=== PATIENT | male | born 1960 | race Caucasian/White ===

== ENCOUNTER 2021-09-29 11:58 | Outpatient (CLI) | payer BC, SELFPAY ==
--- NOTE | ~2021-09-29 | XR_ITS ---
EXAMINATION: XR chest 2V 09/29/2021 12:12 INDICATION: Chronic cough PROCEDURE: 2 view chest COMPARISON: 06/15/2016 FINDINGS: The lungs are clear. The cardiomediastinal silhouette is within normal limits. There are no pleural effusions. There is no pneumothorax suspected. IMPRESSION: 1: NO ACUTE CARDIOPULMONARY DISEASE. Reviewed, dictated and finalized at location A. ECTOR WATCH ASSEMBLY
== END 2021-09-29 11:59 | disposition home or self-care (01) ==
LOC: ANHIMG 12:01
PROVIDERS: PCP Internal Medicine
DX: R05.3 Chronic cough (principal)
CPT/HCPCS: 71046

== ENCOUNTER 2022-12-17 09:47 | Outpatient (CLI) | payer BC, SELFPAY ==
--- NOTE | 2022-12-21 12:26 | WPDHOLTEREM ---
Holter/Event Monitor Holter/Event Monitor Date of procedure: 12/17/22 Holter/Event Procedure: 48 Hr Holter Monitor Indications: Irregular heart beat Conclusion: 1. 48 hour holter monitor on 12/17/22. 2. Predominant rhythm is sinus rhythm. HR range 58-125 bp; average HR 76 bpm. 3. There are 40 premature supraventricular complexes. There are 2 episodes of atrial tachycardia, fastest at 148 bpm and longest lasting 11 beats. 4. There are 14 premature ventricular complexes. No ventricular tachycardia. 5. No sinoatrial or atrioventricular blocks. No significant pauses greater than 2 seconds. 6. No symptoms available for correlation.
== END 2022-12-17 09:48 | disposition home or self-care (01) ==
PROVIDERS: PCP Internal Medicine; Visit Provider Internal Medicine
DX: I49.9 Cardiac arrhythmia, unspecified (principal); I47.1 Supraventricular tachycardia
CPT/HCPCS: 93225; 93226

== ENCOUNTER 2023-06-14 09:28 | Outpatient (CLI) | payer BC, SELFPAY ==
--- NOTE | ~2023-06-14 | XR_ITS ---
EXAMINATION: XR chest 2V DATE: 06/14/2023 09:41 INDICATION: Weight loss TECHNIQUE: PA and lateral views of the chest are obtained. COMPARISON: 09/29/2021 FINDINGS: The lungs are free of acute opacities. No pleural effusion or pneumothorax. The cardiomedia stinal silhouette is normal. There is moderate thoracic spondylosis. IMPRESSION: 1. No acute cardiopulmonary abnormality. Reviewed, dictated and finalized at location B.
== END 2023-06-14 09:29 | disposition home or self-care (01) ==
PROVIDERS: PCP Internal Medicine; Visit Provider Internal Medicine
DX: R63.4 Abnormal weight loss (principal)
CPT/HCPCS: 71046

== ENCOUNTER 2023-07-11 09:47 | Outpatient (CLI) | payer BC, SELFPAY ==
--- NOTE | ~2023-07-11 | XR_ITS ---
EXAMINATION: XR barium swallow modified DATE: 07/11/2023 10:23 INDICATION: Dysphagia. TECHNIQUE: The patient was given barium-containing material of multiple consistencies to swallow by t he speech pathologist while I performed fluoroscopy. Fluoroscopy exposure time was 0.7 minutes. The n umber of fluoroscopy images saved to the PACS was 1. Dose-area product was 0.414 Gy-cm^2. FINDINGS: The oral stage, pharyngeal stage, and cervical/esophageal stage of the swallow are normal. IMPRESSION: 1. Normal modified barium swallow. 2. Please refer to the speech therapy report for recommendations. Reviewed, dictated and finalized at location A.
--- NOTE | 2023-07-11 13:36 | REHSTMBS ---
Assessment and note entered by Cary Kaplan, PEACE OFFICER Modified Barium Swallow Evaluation Feeding Type Recommended Oral Food Consistency Regular, Level 7 Liquid Consistency Thin (0) ST Clinical Summary MODIFIED BARIUM SWALLOW The patient was seen for an outpatient Modified Barium Swallow study at the request of his physician. He reports that he has had issues in the past with solid food becoming stuck at the bottom of his throat however he also admits to becoming choked on thin liquids. The patient was viewed in the lateral position to the level of C5/C6. Patient was presented with thin liquid contrast medium per spoon and then uncontrolled thin liquid per cup and per straw, pudding mixed with semi-solid contrast medium, and then fruit cocktail and cracker both coated with the semi-solid mixture. Patient elicited quick swallows with no evidence of penetration/ aspiration and adequate laryngeal elevation and base of tongue retraction. Results suggest this patient may remain on a Regular Diet. He was instructed in the use of knife and fork to cut food into smaller pieces, taking smaller bites and sips, and then use of head flexion to assist with closing off the airway to prevent penetration/aspiration. Patient voiced good understanding of results and recommendations. No further direct Speech Therapy is indicated at this time. Thank you for this referral.
== END 2023-07-11 09:48 | disposition home or self-care (01) ==
LOC: ANHIMG 09:48
PROVIDERS: PCP Internal Medicine; Visit Provider Internal Medicine
DX: R13.10 Dysphagia, unspecified (principal)
CPT/HCPCS: 92611

== ENCOUNTER 2023-08-18 09:13 | Outpatient (CLI) | payer BC, SELFPAY ==
--- NOTE | ~2023-08-18 | MR_ITS ---
EXAMINATION: MR brain/brain stem wo/w con DATE: 08/18/2023 10:08 INDICATION: UNQUALIFIED VISUAL LOSS, LEFT EYE TECHNIQUE: Magnetic resonance imaging (MRI) of the brain and brainstem was performed without and with 13 cc MultiHance intravenous contrast. Sequences included sagittal and axial T1-weighted SE, axial d iffusion-weighted FS EPI ASSET, axial T2*-weighted GRE, axial T2-weighted FLAIR Propeller, and axial T2-weighted Propeller. Postcontrast axial and coronal T1-weighted SE was obtained. Apparent diffusion coefficient (ADC) maps were created. COMPARISON: None. FINDINGS: No abnormal restricted diffusion to suggest acute ischemic infarct. No MRI evidence of hemorrhage or extra-axial collection. No suspicious foci of susceptibility to suggest prior intraparenchymal hemorr ina. Scattered foci of white matter hyperintensity, likely representing mild small vessel ischemic d isease. No evidence of advanced or lobar predominant parenchymal volume loss. The basilar cisterns ar e patent. Flow voids are preserved. Linear vascular enhancement in the left parietal lobe, likely dev elopmental venous anomaly (also known as a cerebral venous angioma). Paranasal sinuses are within nor mal limits. Globes and orbital contents are within normal limits. IMPRESSION: Mild chronic white matter changes. Left parietal developmental venous anomaly. No MR findings to suggest optic neuritis. Reviewed, dictated and finalized at location K.
== END 2023-08-18 09:14 | disposition home or self-care (01) ==
PROVIDERS: PCP Internal Medicine; Visit Provider Family Medicine
DX: H54.62 Unqualified visual loss, left eye, normal vision right eye (principal); R90.89 Other abnormal findings on diagnostic imaging of central nervous system
CPT/HCPCS: 70553; A9577

== ENCOUNTER → 2023-08-22 11:07 | Outpatient (CLI) | payer BC, SELFPAY ==
--- NOTE | ~2023-08-22 | US_ITS ---
EXAMINATION: US carotid duplex BI DATE: 08/22/2023 11:41 INDICATION: Transient visual loss of the left TECHNIQUE: Grayscale, color Doppler, and pulsed Doppler images of the cervical carotid arteries were obtained. The degree of vessel stenosis is placed in one of the following categories: normal, <50%, 5 0-69%, >=70% but less than near-occlusion, near-occlusion, or total occlusion. Note that percent sten osis relative to normal distal artery lumen diameter is indirectly measured from velocity measurement s as described by Arun, et al. Radiology 2003; 229:340-346. Notes: Normal: Peak systolic velocity <125 centimeters/sec and no plaque <50%. Peak systolic velocity <125 ( EDV <40; ICA/CCA PSV ratio <2.0; used these factors only a tandem lesions or low cardiac output or co ntralateral disease) 50-69 %: PSV 125-230 (EDV 40-100; ratio 2-4) >= 70% but less than near occlusion: PSV greater than 230 (EDV > 100; ratio> 4.0) Near Occlusion: PSV that is variable; markedly narrowed lumen Occlusion: Absent flow on color/spectral Doppler and no lumen on cloud scale. COMPARISON: None. FINDINGS: RIGHT: The right common carotid artery (CCA) peak systolic velocity (PSV) is 102 cm/s. The right internal ca rotid artery (ICA) PSV is 109 cm/s. The right ICA end-diastolic velocity (EDV) is 35 cm/s. The right ICA/CCA PSV ratio is 1.1. The external carotid artery (ECA) PSV is 119 cm/s. There is antegrade flow in the right vertebral artery. LEFT: The left CCA PSV is 91 cm/s. The left ICA PSV is 137 cm/s. The left ICA EDV is 29 cm/s. The left ICA/ CCA PSV ratio is 1.5. The ECA PSV is 108 cm/s. There is antegrade flow in the left vertebral artery. IMPRESSION: 1. Less than 50% stenosis in the right internal carotid artery by sonographic criteria. 2. 50-69% stenosis in the left internal carotid artery by sonographic criteria. Reviewed, dictated and finalized at location L. IMPRESSION: 1. Less than 50% stenosis in the right internal carotid artery by sonographic c romieria. 2. 50-69% stenosis in the left internal carotid artery by sonographic criteria.
== END ==
PROVIDERS: PCP Internal Medicine; Visit Provider Internal Medicine
DX: I65.23 Occlusion and stenosis of bilateral carotid arteries (principal); H53.122 Transient visual loss, left eye
CPT/HCPCS: 93880

== ENCOUNTER → 2023-09-04 09:46 | Outpatient (CLI) | payer BC, SELFPAY ==
--- NOTE | ~2023-09-04 | CT_ITS ---
EXAMINATION: CTA neck DATE: 09/04/2023 10:23 INDICATION: Left carotid stenosis. TECHNIQUE: Computed tomographic angiography (CTA) of the neck was performed with 100 mL Omnipaque-350 intravenous contrast. Automated exposure control and iterative reconstruction technique were employe d. The dose-length product was 552.72 mGy-cm. Maximum intensity projection 3D-reconstructions were cr eated by the technologist on a separate workstation. COMPARISON: Ultrasound 08/22/2023 FINDINGS: There are no pathologically enlarged lymph nodes. The vertebral arteries are codominant. Th ere is no significant stenosis of the vertebral arteries. There is plaque in the proximal internal ca rotid arteries. There is 0% stenosis of the proximal right internal carotid artery relative to normal distal artery lumen diameter (NASCET criteria). There is 22% stenosis of the proximal left internal carotid artery relative to normal distal artery lumen diameter. There is mild cervical spondylosis. IMPRESSION: 1. 0% stenosis of the proximal right internal carotid artery relative to normal distal artery lumen d iameter (NASCET criteria). 2. 22% stenosis of the proximal left internal carotid artery relative to normal distal artery lumen d iameter. Reviewed, dictated and finalized at location E. TBREAD TRIMMER IMPRESSION: 1. 0% stenosis of the proximal right internal carotid artery relative to normal distal artery lumen diameter (NASCET criteria). 2. 22% stenosis of the proximal left internal carotid artery relative to normal distal artery lumen diameter.
[2023-09-04 10:04] LABS: Estimated Glomerular Filt Rate > 60
== END ==
PROVIDERS: PCP Internal Medicine; Visit Provider Internal Medicine
DX: I65.22 Occlusion and stenosis of left carotid artery (principal)
CPT/HCPCS: 70498; Q9967

== ENCOUNTER 2023-09-17 14:33 | Outpatient (CLI) | payer BC, SELFPAY ==
--- NOTE | 2023-09-17 | ECHO_ITS ---
Patient Info Name: Otis Escoto Age: 62 years : 1960 Gender: Male Ht: 71 in Wt: 156 lbs BSA: 1.88 m2 HR: 74 bpm BP: 151 / 78 mmHg Heart Rhythm: Sinus Rhythm Technical Quality: Good Exam Date: 09/17/2023 2:51 PM Exam Location: Echo Lab Patient Status: Outpatient Admit Date: 09/17/2023 Staff Ordering Physician: Debra Cortez MD Precipitator Supervisor: Chin Sanon RDCS Attending Provider: Debra Cortez MD Referring Physician: Dana BRAGG; Exam Type: CA echo doppler color flow Study Info Indications - transient visual loss of lyft eye Complete two-dimensional, color flow and Doppler transthoracic echocardiogram is performed. Summary 1. Complete two-dimensional, color flow and Doppler transthoracic echocardiogram is performed. 2. Left ventricular chamber dimension is normal. 3. Left ventricular systolic function is normal, estimated at 60-65%. 4. There is mild concentric increased left ventricular wall thickness. 5. The left ventricular diastolic function is normal. 6. E/e' 6 is not elevated. 7. There is mild aortic valve sclerosis. 8. There is trace tricuspid valve regurgitation. 9. No pulmonary hypertension, estimated pulmonary arterial systolic pressure is 23 mmHg. 10. There is trace pulmonic regurgitation. Left Ventricle E/e' 6 is not elevated. Left ventricular chamber dimension is normal. Left ventricular systolic function is normal, estimated at 60-65%. There is mild concentric increased left ventricular wall thickness. The left ventricular diastolic function is normal. Right Ventricle Right ventricular systolic function is normal and with normal TAPSE 3.1 cm. Right ventricular chamber dimension is normal. Left Atria Left atrial chamber dimension is normal. Right Atria Right atrial chamber dimension is normal. Aortic Valve The aortic valve is trileaflet. There is mild aortic valve sclerosis. There is no aortic valve stenosis. There is no aortic valve regurgitation. Pulmonic Valve There is trace pulmonic regurgitation. Mitral Valve There is no mitral valve stenosis. There is no mitral valve regurgitation. Tricuspid Valve There is trace tricuspid valve regurgitation. No pulmonary hypertension, estimated pulmonary arterial systolic pressure is 23 mmHg. Pericardium/Pleural There is no pericardial effusion. Inferior Vena Cava Normal inferior vena cava with >50% collapse upon inspiration consistent with normal right atrial pressure, 5 mmHg. Aorta The aortic root size at the sinus of Valsalva is normal. Left Ventricular Outflow Tract Name Value Normal LVOT 2D LVOT Diameter 2.0 cm LVOT Doppler LVOT Peak Gradient 2 mmHg LVOT Mean Gradient 2 mmHg LVOT VTI 23 cm LVOT VTI/AV VTI Ratio 0.9 LVOT Stroke Volume 74 ml LVOT CO 4.3 l/min LVOT CI 2.3 l/min/m2 Pulmonic Valve Name Value Normal
== END 2023-09-17 14:34 | disposition home or self-care (01) ==
LOC: ANHCARD 14:34
PROVIDERS: PCP Internal Medicine; Visit Provider Internal Medicine
DX: H53.122 Transient visual loss, left eye (principal)
CPT/HCPCS: 93306

== ENCOUNTER 2024-07-17 10:54 | Outpatient (CLI) | payer MEDICARE, SELFPAY ==
--- NOTE | ~2024-07-17 | XR_ITS ---
Clinical Indication: Weight loss PA and lateral views of the chest: Comparison: 06/14/2023 Findings: The lungs are clear, without evidence of focal consolidation or pleural effusion. Cardiome diastinal silhouette is within normal limits. Bones and soft tissues are unremarkable. Impression: Normal chest. Reviewed, dictated and finalized at location . Impression: Normal chest.
== END 2024-07-17 10:55 | disposition home or self-care (01) ==
PROVIDERS: PCP Internal Medicine; Visit Provider Internal Medicine
DX: R63.4 Abnormal weight loss (principal)
CPT/HCPCS: 71046

== ENCOUNTER 2025-02-11 12:50 | Emergency (ER) | payer MEDICARE, SELFPAY ==
--- NOTE | ~2025-02-11 | XR_ITS ---
CHEST RADIOGRAPH, PA AND LATERAL CLINICAL HISTORY: SOB COUGH FEVER X 1 WK . COMPARISON: 07/17/2024 TECHNIQUE: PA and lateral views of the chest. FINDINGS The cardiomediastinal silhouette is unremarkable. The lungs are clear. Visualized osseous structures and soft tissues are unremarkable. IMPRESSION: No focal infiltrate or effusion. Reviewed, dictated and finalized at location A.
[2025-02-11 12:54] VITALS: BP 125/69; PULSE 103; RESP 20; TEMP 36.6; O2SAT 98
--- OUTSIDE RECORDS SUMMARY | 2025-02-11 13:05 | XMS_ITS | Encounter Summary ---
Author Organization [facility] Address [address] [place] [address] Care Team Providers Care Quality Assurance Group Leader Name Role Phone Ward Sher MD Primary Care Provider [phone] Encounter Details Date Type Department Care Team (Late st Contact Info) Description 03/25/2024 Lab Requisition [facility] - DermPath Lab [address] [facility] [place] [id number] Millie Hair MD [address] [facility] [address] [place] [address] Social History Tobacco Use Types Packs/Day Years Used Date Smoking Tobacco: Never Smokeless Tobacco: Never Sex and Gender Information Value Date Recorded Sex Assigned at Not on file 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 Gender Identity Not on file Sexual Orientation Not on file documented as of this encounter Plan of Treatment Not on file documented as of this encounter Procedures Procedure Name Priority Date/Time Associated Diagnosis Comments DERMATOPATHOLOGY Routine 03/25/2024 9:08 AM CDT documented in this encounter Results * DERMATOPATHOLOGY (03/25/2024 9:08 AM CDT) Case Report Dermatopathology Report Case: [id number] Authorizing Provider: Millie Hair MD Collected: 03/25/2024 09:08 AM Ordering Location: [facility] - Received: 03/26/2024 06:22 AM DermPath Lab Pathologist: Rosita Adams MD Specimens: A) - Skin, glabella B) - Skin, right thigh 3:56 PM [facility] Final Diagnosis Specimen A. 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 SKIN, right thigh: LENTIGINOUS MELANOCYTIC NEVUS, JUNCTIONAL TYPE, IRRITATED AND INFLAMED (D22.71) 3:56 PM [facility]ERMATOPATHOLOGY [facility]OR[facility] Clinical History A: DGH, Reynold Derm B: Nevus r/o MM 3:56 PM [facility]MAT[facility] Gross Description Specimen A: Received is one formalin filled container labeled with the patient's name and designated glabella. The specimen consists of a shave biopsy measuring 4x3x1 mm. Jar 0. Specimen B: Received is one formalin filled container labeled with the patient's name and designated right thigh. The specimen consists of a shave biopsy measuring 6x6x1 mm. Jar 0. 3:56 PM [facility] Microscopic Description Specimen A. SKIN, glabella: Small follicles with abundant sebaceous glands with variable maturity radiate from a large central follicle which is dilated. This central hair follicle contains keratinous material. Additional deeper sections were obtained and reviewed. Specimen B. SKIN, right thigh: This is a junctional nevus. There is melanin pigment in the stratum corneum. There is a lentiginous proliferation of melanocytes between nests of cells along the dermal-epidermal junction. 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 There is a lymphohistiocytic infiltrate within the dermis. 3:56 PM T DERMATOPATHOLOGY LABORATORY Disclaimer An external and internal positive and negative controls are appropriate for the histochemical, immunohistochemical and immunofluorescence stain(s) in this case (if any), except where stated explicitly. The performance characteristics of the stain(s) cited in this report were developed and its performance characteristic determined by the Dermatopathology Laboratory at [facility], directed by Dr. Beatriz Adams. These tests need not be, and therefore are not, approved by the [place] Food and Drug Administration. The tests are used for clinical purposes. Billing Codes Specimen Charges Stain Charges 42312 41619 1 1 4 3:56 PM CDT DERMATOPATHOLOGY LABORATORY Embedded Images 4 3:56 PM CDT DERMATOPATHOLOGY LABORATORY Pathology/Cytology TISSUE SPECIMEN FROM SKIN / Unknown 03/25/2024 9:08 AM CDT 03/26/2024 6:22 AM CDT Miscellaneous samples (specimen) TISSUE SPECIMEN FROM SKIN / Unknown 03/25/2024 9:08 AM CDT 03/26/2024 6:22 AM CDT us Millie Hair MD LAB - PATHOLOGY/CYTOLOGY ORD ERABLES Final Result DERMATOPATHOLOGY LABORATORY [facility] - Department of Dermatology [facility] Specialized Medicine [address] [place] [address], [address] [phone] documented in this encounter Visit Diagnoses Not on filedocumented in this encounter Care Teams Quality Assurance Group Leader Relationship Specialty Start Date End Date Ward Sher MD [address] [place] [address] PCP - General Family Medicine 11/29/17 documented as of this encounter
--- OUTSIDE RECORDS SUMMARY | 2025-02-11 13:05 | XMS_ITS | Clinical Summary ---
Author Organization [facility] Address [address] [place] [address] Phone Care Team Providers Care Php Engineer Name Role Phone Debra Cortez MD Primary Care Provider [phone] Allergies No known active allergies Medications levothyroxine (SYNTHROID) 50 mcg tablet Take 1 tablet (50 mcg total) by mouth daily 3 Active amLODIPine (NORVASC) 5 mg tablet 3 Active fluticasone-ume clidin-vilanter (Trelegy Ellipta) 200-62.5-25 mcg inhaler USE 1 INHALATION ORALLY ONCE DAILY Active montelukast (SINGULAIR) 10 mg tablet 1 tab(s) 8 Active cholecalciferol (VITAMIN D-3) 2000 unit capsule 1 capsule (2,000 Units total) Active Breo Ellipta 100-25 mcg/dose diskus inhaler Inhale 1 puff daily Active rosuvastatin (CRESTOR) 40 mg tablet Take 1 tablet (40 mg total) by mouth daily Active aspirin 81 mg enteric coated tablet Take 1 tablet (81 mg total) by mouth daily Active Active Problems No known active problems Medical History Medical History Date Comments Hypertension Hyperlipidemia Thyroid disease Sleep apnea Asthma Family History Medical History Relation Name Comments Diabetes Brother Esophageal cancer Father Stroke Father Diabetes Mother Relation Name Status Comments Brother Father Mother Social History Tobacco Use Types Packs/Day Years Used Date Smoking Tobacco: Never Smokeless Tobacco: Never Tobacco Cessation:Counseling Given: Not Answered Personal Safety Answer Date Recorded Getting School Help Needed Not on file 11/04 Sex and Gender Information Value Date Recorded Sex Assigned at Not on file 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 Gender Identity Not on file Sexual Orientation Not on file Obstetrics History Last Filed Vital Signs Vital Sign Reading Time Taken Comments Blood Pressure 102/64 05/27/2024 12:58 PM CDT Pulse 67 05/27/2024 12:58 PM CDT Temperature - - Respiratory Rate - - Oxygen Saturation 99% 05/27/2024 12:58 PM CDT Inhaled Oxygen Concentration - - Weight 70.5 kg (155 lb 6.4 oz) 05/27/2024 12:58 PM CDT Height 180.3 cm (5' 11 ) 05/27/2024 12:58 PM CDT Body Mass Index 21.67 05/27/2024 12:58 PM CDT Plan of Treatment Health Maintenance Due Date Last Done Comments Colon Cancer Screening-Colonoscopy 1960 Depression Screening 1960 Fall Risk Assessment 1960 Hepatitis C Screening 1960 Prostate Cancer Screening-PSA 1960 Hepatitis B Screening 1976 Zoster Vaccine (1 of 2) 2008 Pneumococcal vaccine 65+ (2 of 2 - PCV) 07/14/2020 07/14/2019 Well Visit 65+ 12/28/2023 Covid-19 Vaccine (2023-2 5 season) 2024 08/05/2023, 10/16/2022, 06/01/2022, Additional history exists Influenza Vaccine (#1) 2024 , 07/27/2022, 07/19/2022, Additional history exists DTaP/Tdap/Td Vaccine (2 - Td or Tdap) 09/17/2024 09/17/[address] [place] [place] [address] [facility] Member Subscriber Plan / Payer (Ef fective 2023-Present) Name:Otis Escoto Relation to Subscriber:Self Name:Otis Escoto Payer ID:[id number] (NAIC) Type:[facility] Address: [address] MEDICARE [facility] Care Teams Php Engineer Relationship Specialty Start Date End Date Debra Cortez MD [address] [employer] [employer] [place] [address] PCP - General Internal Medicine 12/26/22
--- OUTSIDE RECORDS SUMMARY | 2025-02-11 13:05 | XMS_ITS | Clinical Summary ---
Author Organization [facility] Address [address] [place] [phone] Phone Care Team Providers Care Speed Runner Name Role Phone Ward Sher MD Primary Care Provider [phone] Allergies No known active allergies Medications No known medications Social History Tobacco Use Types Packs/Day Years Used Date Smoking Tobacco: Never Alcohol Use Standard Drinks/Week Comments Yes 0 (1 standard drink = 0.6 oz pur e alcohol) social Sex and Gender Information Value Date Recorded Sex Assigned at Not on file Legal Sex Male 11:10 AM CDT Gender Identity Not on file Sexual Orientation Not on file Last Filed Vital Signs Vital Sign Reading Time Taken Comments Blood Pressure 145/80 05/02/2015 2:46 PM CDT Pulse 78 05/02/2015 1:30 PM CDT Temperature 36.8 C (98.3 F) 05/02/2015 2:46 PM CDT Respiratory Rate 16 05/02/2015 2:46 PM CDT Oxygen Saturation 94% 05/02/2015 2:46 PM CDT Inhaled Oxygen Concentration - - Weight 93 kg (205 lb) 05/02/2015 11:19 AM CDT Height 180.3 cm (5' 11 ) 05/02/2015 11:19 AM CDT Body Mass Index 28.59 05/02/2015 11:19 AM CDT Plan of Treatment Health Maintenance Due Date Last Done Comments DTAP/TDAP/TD VACCINES (1 - Tdap) 1977 COLORECTAL SCREENING 12/28/2003 Colorectal Cancer Screening 12/28/2003 FIT-DNA Q 3 years 12/28/2003 FIT/FOBT Q 1 year 12/28/2003 Flex Sig/CT Colonography Q 5 years 12/28/2003 PNEUMOCOCCAL VACCINE 50+ YEARS (1 of 1 - PCV) 12/28/19 09 ZOSTER VACCINE (1 of 2) 2008 INFLUENZA VACCINE (#1) 2024 RSV VACCINE (60+ or ) (1 - 1-dose 75+ series) 2033 Insurance [facility] [employer] PPO Care Teams Speed Runner Relationship Specialty Start Date End Date Ward Sher MD [facility] [place] [address] PCP - General Family Practice 05/02/15
--- OUTSIDE RECORDS SUMMARY | 2025-02-11 13:05 | XMS_ITS | Clinical Summary ---
Author Organization [facility] [employer] Address [address] [place] [address] Care Team Providers Care Crosscutter Rolled Glass Name Role Phone Ward Sher MD Primary Care Provider [phone] Source Comments [facility] [employer],non-owned Affiliates and Associated Physician Practices is amultiple site organization consisting of ambulatory clinics and hospital sitesin [place], [place] and [place]. This disclosure is being madepursuant to the Care Everywhere program and may not contain all information available regarding this patient. Last updated 18.[facility] [employer] Allergies No known active allergies Medications * Be aware that medications may not be up to date on this document. Alwaysverify current medications with the patient. Fluticasone Furoate-Vilanter ol (BREO ELLIPTA IN) Active amLODIPine (NORVASC) 5 MG tablet Take 5 mg by mouth once daily 0 Active atorvastatin (LIPITOR) 40 MG tablet 1 TABLET ORALLY DAILY. REPLACES PRAVASTATIN. 1 Active rosuvastatin (CRESTOR) 10 MG tablet 1 Active albuterol HFA (PROVENTIL;EMEKA LA ENNA;PROAIR) 108 (90 Base) MCG/ACT inhalerIndicatio ns:Acute bronchitis, unspecified organism Inhale 2 (two) puffs by mouth every 6 hours as needed for Wheezing or Cough 1 g 1 Active methylPREDNISolo ne (MEDROL DOSEPAK) 4 MG tablet Take by mouth as directed Take as directed by mouth per package instructions. 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 Gender Identity Not on file Sexual Orientation Not on file Last Filed Vital Signs Vital Sign Reading Time Taken Comments Blood Pressure 124/70 09/09/2021 10:50 AM METAL FLOW COORDINATOR Pulse 91 09/09/2021 10:35 AM METAL FLOW COORDINATOR Temperature 37.1 C (98.7 F) 08/29/2021 11:02 AM CDT Respiratory Rate 18 08/29/2021 11:02 AM CDT Oxygen Saturation 98% 09/09/2021 10:35 AM METAL FLOW COORDINATOR Inhaled Oxygen Concentration - - Weight 84.4 kg (186 lb) 09/09/2021 10:35 AM METAL FLOW COORDINATOR Height 180.3 cm (5' 11 ) 09/09/2021 10:35 AM METAL FLOW COORDINATOR Body Mass Index 25.94 09/09/2021 10:35 AM METAL FLOW COORDINATOR Plan of Treatment Health Maintenance Due Date Last Done Comments COLOGUARD (AGES 45-75) - COLON CA SCREENING 1958 COLON MONITORING 1958 COLONOSCOPY - COLON CA SCREENING 1958 CT COLONOGRAPHY - COLON CA SCREENING 1958 Colorectal Cancer Screening 1958 FIT - COLON CA SCREENING 1958 FLEX SIG - COLON CA SCREENING 1958 MEDICARE AWV 12 MONTHS 1958 HEPATITIS C SCREENING 12/22/1976 DTAP/TDAP/TD VACCINES (1 - Tdap) 1977 PNEUMOCOCCAL VACCINE 50+ (1 of 1 - PCV) 2008 ZOSTER VACCINE (1 of 2) 2008 SCREENING FOR DIABETES 06/26/2021 COVID-19 VACCINE (6 - season) 2024 10/16/2022, 06/01/2022, 09/13/2021, Additional history exists DEPRESSION SCREENING 10/28/2024 INFLUENZA VACCINE (Season Ended) 2025 07/19/2022, 07/28/2021, 07/07/2020, Additional history exists Respiratory Syncytial Virus (RSV) Vaccine Pt: or over 60 yrs (1 - 1-dose 75+ series) 2033 HEPATITIS B VACCINE Aged Out No longe r eligible based on patient's age to complete this topic HIB VACCINE Aged Out No longer eligi ble based on patient's age to complete this topic HPV VACCINE Aged Out No longer eligi ble based on patient's age to complete this topic MENINGOCOCCAL (Group B) VACCINE SHARED DECISION-MAKING Aged Out No longer eligible based on patient's age to complete this topic MENINGOCOCCAL GROUPS A/C/Y/W VACCINE Aged Out No longer eligible based on patient's age to complete this [place] [place] [address] MEDICARE [facility] Care Teams Crosscutter Rolled Glass Relationship Specialty Start Date End Date Ward Sher MD [address] [place] [id number] PCP - General Family Medicine 11/29/17
--- OUTSIDE RECORDS SUMMARY | 2025-02-11 13:05 | XMS_ITS | Referral Summary ---
Author Organization [facility] Address [address] [place] [address] Phone Care Team Providers Care Clinic Clerk Name Role Phone Debra Cortez MD Primary Care Provider [phone] Allergies No known active allergies Medications levothyroxine [...] Active Active Problems No known active problems Social History Tobacco Use Types Packs/Day Years Used Date Smoking Tobacco: Never Smokeless Tobacco: Never Tobacco Cessation:Counseling Given: Not Answered Personal Safety Answer Date Recorded Getting School Help Needed Not on file 11/04 Sex and Gender Information Value Date Recorded Sex Assigned at Not on file 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
--- OUTSIDE RECORDS SUMMARY | 2025-02-11 13:05 | XMS_ITS ---
Author Organization [facility] Address [address] [place] [address] Care Team Providers Care Supervising Airplane Pilot Name Role Phone Maame Skinner Primary Care Provider Jaskaran Wall Unavailable [phone] Clarisa Frances Unavailable [phone] Allergies No Known Allergies Results Component Value Reference Range Notes Spirometry Reviewed date:12/31/2024 09:18:43 AM Interpretation:Normal Performing Lab: Notes/Report: Normal SpiroPreBronchodilator_FVC 4.07 SpiroPostBronchodilator_FEF25_75 0 SpiroPreBronchodilator_FEF25_75 4.07 SpiroPreBronchodilator_FEV1 3.4 SpiroPrecentPredictionPost_FEF25_75 0 SpiroPrecentPredictionPost_FEV1 0 SpiroPrecentPredictionPost_FEV1_OVER_FVC 0 SpiroPrecentPredictionPost_FVC 0 SpiroPrecentPredictionPre_FEF25_75 124.5 SpiroPrecentPredictionPre_FEV1 94.7 SpiroPrecentPredictionPre_FEV1_OVER_FVC 108.1 SpiroPrecentPredictionPre_FVC 87.7 SpiroPredicted_FEF25_75 3.27 SpiroPreBronchodilator_FEV1_OVER_FVC 83.5 SpiroPreBronchodilator_PEF 7.86 SpiroPostBronchodilator_FVC 0 SpiroPostBronchodilator_FEV1 0 SpiroPostBronchodilator_FEV1_OVER_FVC 0 SpiroPostBronchodilator_PEF 0 SpiroPredicted_FVC 4.64 SpiroPredicted_FEV1 3.59 SpiroPredicted_FEV1_OVER_FVC 77.26 SpiroPredicted_PEF 8.47 REASON FOR VISIT Cough f/u, stepped down from Trelegy 200 to Breo last visit. ACT=22. No recent antibotics or steroids. Dealing with a cold since last week but cough improving, ARC f/u, Stopped shots in 03/2024. Minimal drainage noted off treatment., Previously treated for H pylori in 2022. Food was getting stuck - doing better since treatment., No interval vision changes - previously with temporary lost vision inL eye - s/p US of carotid - normal CT with Neurology. [place] he has early signs of Parkisons, UTD on Flu shot and Prevna Medications Medication SIG (Take, Route, Frequency, Duration) Notes Start Date End Date Status Trelegy Ellipta 100/62.5/25 MCG 1 INHALATION PO QDAY for 30 DAY(S) *Please review and pick correct strength-formula tion from Stageit options. If intended option is not shown, discontinue and re-order from Quick Search* Not-Taking Auvi-Q 0.3 MG/0.3ML 0.3 mg intramuscularly once for 1 days Not-Taking Montelukast Sodium 10 MG 1 tab(s) orally 30 mins prior to allergy shots for 30 day(s) Not-Taking Trelegy Ellipta 200 MCG-62.5 MCG-25 MCG/INH USE 1 INHALATION ORALLY ONCE DAILY for 90 *Please review and pick correct strength-formula tion from Stageit options. If intended option is not shown, discontinue and re-order from Quick Search* Not-Taking Montelukast Sodium 10 MG 1 tab(s) orally once a day for 90 days Not-Taking CETIRIZINE HYDROCHLORIDE 10 mg 1 tab(s) orally once a day for 30 days Active NASAL WASHES N/A as directed intranasally as needed for 30 Active Auvi-Q 0.3 MG/0.3ML 0.3 mg intramuscularly once Not-Taking Mucinex 600 MG 1 tab(s) orally every 12 hours Not-Taking ALBUTEROL (EQV-PROVENTIL HFA) 90 MCG/INH INHALE 2 PUFFS EVERY 4 TO 6 HOURS, NEEDED AND PER THE ASTHMA ACTION PLAN *Please review for potential replacement for e-prescription and drug interaction check* Active VITAMIN D3 5000 intl units 1 cap(s) orally once a day for 30 day(s) Active Rosuvastatin Calcium 40 MG 1 TAB(S) ORALLY ONCE A DAY *Please review and pick correct strength-formula tion from Stageit options. If intended option is not shown, discontinue and re-order from Quick Search* 08/02/2022 Active AMLODIPINE 5 mg 1 tab(s) orally once a day Active MUCINEX 600 mg 1 tab(s) orally every 12 hours Active Breo Ellipta 100-25 MCG/ACT USE 1 INHALATION BY MOUTH ONCE A DAY for 90 Active Aspirin 81 MG 1 tab(s) orally once a day Active Cetirizine HCl 10 MG 1 tab(s) orally once a day for 30 days Active amLODIPine Besylate 5 MG 1 tab(s) orally once a day Active Breo Ellipta 100-25 MCG/ACT 1 puff Inhalation Once a day for 90 days 12/31/2024 Active Levothyroxine Sodium 25 MCG 1 tab(s) orally once a day for 30 day(s) Active SIT (TRADITIONAL) variable per schedule SC per schedule Active Vitamin D3 125 MCG (5000 UT) 1 cap(s) orally once a day for 30 day(s) Active Social History Tobacco Use: Social History Observation Description Date Details (start date - stop date) Never Smoker NA - NA Tobacco Control (Standard) Question Answer Notes Tobacco use: Nonsmoker AUDIT-C (Standard) Question Answer Notes Did you have a drink containing alcohol in the p ast year? No Points 0 Interpretation Negative Vital Signs Blood pressure systolic 143 mm Hg 01/01/20 25 Blood pressure diastolic 72 mm Hg 025 Respiratory Rate 17 /min 12/31/2024 Height 70.25 in 12/31/2024 Weight 164.2 lbs 12/31/2024 BMI 23.39 kg/m2 12/31/2024 Oximetry 100 % 12/31/2024 Encounters Encounter Location Date Provider Diagnosis [facility] [address] [place] [address] 12/31/2024 Clarisa Young Moderate persistent asthma, uncomplicated J45.40 ; Allergic rhinitis due to pollen J30.1 ; Allergic rhinitis due to animal (cat) (dog) hair and dander J30.81 ; Other allergic rhinitis J30.89 ; Other specified disorders of nose and nasal sinuses J34.89 and Vitamin D deficiency, unspecified E55.9 Assessments Encounter Date Diagnosis (ICD Code) Assessment Notes Treatment Notes Treatment Clinical Notes Section Notes 12/31/2024 Moderate persistent asthma, uncomplicated (ICD-10 - J45.40) Jeff returns today doing well. He did recently have a cold but lungs are clear. Continue to use MARKO and add on Mucinex PRN -Spirometry today is normal on Breo, previously stepped down from Trelegy last year - IgE=87 -Last course of steroids and abx on 07/2023 - will watch symptoms in Fall -Recommend Flu RSV COVID vaccines. Also due for Prevnar later this year -Rinse out mouth after use and continue MARKO per AAP Follow-up in 3-6 months 12/31/2024 Allergic rhinitis due to pollen (ICD-10 - J30.1) Jeff clearly suffers from atopic disease based upon history and our previous skin testing (oak tree, weeds, cockroach, dog, dust mites, molds). -He continue avoidance measures and medications as above. -He opted to hold shots in March and has been doing well - closely monitor and if symptoms regress will resume dosing 12/31/2024 Allergic rhinitis due to animal (cat) (dog) hair and dander (ICD-10 - J30.81) Continue allergen avoidance, meds and continue SCIT as an adjunctive treatment to current regimen 12/31/2024 Other allergic rhinitis (ICD-10 - J30.89) Continue allergen avoidance, meds and continue SCIT as an adjunctive treatment to current regimen 12/31/2024 Other specified disorders of nose and nasal sinuses (ICD-10 - J34.89) Otis has a visible perforation in his anterior nasal septum, diagnosed in March 2018 and confirmed by ENT. Josesito present on today's PE. -appears to be slightly larger, recommend f/u with Dr. Rodriguez. Presumed induced by chronic nasal pillow CPAP use, now using full face mask. Contune to avoid nasal sprays 12/31/2024 Vitamin D deficiency, unspecified (ICD-10 - E55.9) Continue 5000 IU QD 12/31/2024 Other Plan Of Treatment Medication Medication Name Sig Start Date Stop Date Notes CETIRIZINE HYDROCHLORIDE 10 mg 1 tab(s) orally once a day for 30 days NASAL WASHES N/A as directed intranasally as needed for 30 ALBUTEROL (EQV-PROVENTIL HFA) 90 MCG/INH INHALE 2 PUFFS EVERY 4 TO 6 HOURS, NEEDED AND PER THE ASTHMA ACTION PLAN *Please review for potential replacement for e-prescription and drug interaction check* VITAMIN D3 5000 intl units 1 cap(s) orally once a day for 30 day(s) AMLODIPINE 5 mg 1 tab(s) orally once a day MUCINEX 600 mg 1 tab(s) orally ever y 12 hours Breo Ellipta 100-25 MCG/ACT 1 puff Inhalation Once a day for 90 days 12/31/2024 Treatment Notes Assessment Notes Moderate persistent asthma, uncomplicate d Jeff returns today doing well. He did recently have a cold but lungs are clear. Continue to use MARKO and add on Mucinex PRN -Spirometry today is normal on Breo, [facility] - IgE=87 -Last course of steroids and abx on 07/2023 - will watch symptoms in Fall -Recommend Flu RSV COVID vaccines. Also due for Prevnar later this year -Rinse out mouth after use and continue MARKO per AAP Follow-up in 3-6 months Allergic rhinitis due to pollen Don clearly suffers from atopic disease based upon history and our previous skin testing (oak tree, weeds, cockroach, dog, dust mites, molds). -He continue avoidance measures and medications as above. -He opted to hold shots in March and has been doing well - closely monitor and if symptoms regress will resume dosing Allergic rhinitis due to ani mal (cat) (dog) hair and dander Continue allergen avoidance, meds and continue SCIT as an adjunctive treatment to current regimen Other allergic rhinitis Continue allergen avoidance, meds and continue SCIT as an adjunctive treatment to current regimen Other specified disorders of nose and nasal sinuses Otis has a visible perforation in his anterior nasal septum, diagnosed in March 2018 and confirmed by ENT. Josesito present on today's PE. -appears to be slightly larger, recommend f/u with Dr. Rodriguez. Presumed induced by chronic nasal pillow CPAP use, now using full face mask. Contune to avoid nasal sprays Vitamin D deficiency, unspecified Contin ue 5000 IU QD Next Appt Details Follow Up: 3-6 Months, Reaso n: Evaluation and Management Provider Name:Clarisa Frances , 07/15/2025 09:00:00 AM, [address] [facility], [address], [place], [address], Progress Notes * Otis ESCOTO JDOB: [birth year] (64 yo M)Acc No.[id number]:12/31/2024 Asthma F/U Patient: Otis MUNOZ Provider: Titi Frances PA-C :1960 A ge:64 Y S ex:Male Date:12/31/2024 Address:[facility] [address], [facility] Pcp:Maame Skinner Subjective: * Chief Complaints: * C ough f/u, stepped down from Trelegy 200 to Breo last visit. ACT=22. No recent antibotics or steroids. Dealing with a cold since last week but cough improvingARC f/u, Stopped shots in 03/2024. Minimal drainage noted off treatment.Previously treated for H pylori in 2022. Food was getting stuck - doing better since treatment.No interval vision changes - previously with temporary lost vision in L eye - s/p US of carotid - normal CT with Neurology. [place] he has early signs of ParkisonsUTD on Flu shot and Prevna * HPI: A sthma follow-up: Asthma Survey - Classification A sthma severity classification M oderate Persistent * Introduction: I had the pleasure of seeing Desiree Escoto (Don), a 64-year-old male with allergic rhinitis, chronic cough with asthma component, ELKIN on CPAP and GERD who returns today for interval evaluation and management and SCIT. The last few months he has been doing well. He is getting over a cold from last week, mild cough and drainage. Using MARKO with benefit. No other symptoms. From an allergy standpoint he has no compliants. He opted to hold shots in March 2024. Minimal drainage noted but feels well. P reviously o n Trelegy 200, now back on [facility]. He was stepped up from [facility] after having having bronchitis on 07/2023 after returning from [place], did not seek care while in [place]. Received prednisone and Zpack x7 days Last prednisone use was prior to recent illness was 02/2018 for cough. He continued to have lingering asthma syptoms. Since that time he has been doing well. P reviously had PNA in 2019. Treated outpatient. He is on PPI for GERD. He has no allergy complaints today, on daily cetirizine and SCIT. Remains on monthly maintenance since 12/2018. He tolerates SCIT with Zyrtec/Singulair premedication. Tried to reduce Zyrtec over Fall/Winter but resumed in Aug due to increased drainage.He refrains from nasal sprays due to nasal septum perforation. He does have a history of frequent pulmonary infections, and PIDD workup done in 2018 and notable for poor S. pneumo protection and Vitamin D deficiency. Now s/p Pneumovax with now protective titers, and s/p Vitamin D suzette doses with normal Vitamin D. He is on 5k IU/day. Today, he reports no fevers, chills, night sweats or other constitutional symptoms. * ROS: A LLERGY: runny nose Y es. s inus congestion Y es. S PECIAL SENSES: loss of smell Y es. C ONSTITUTIONAL: fatigue Y es. E NT: Positive n one. R ESPIRATORY: shortness of breath Y es. c hest congestion Y es.?cough Y es. O PHTHALMOLOGY: Positive for n one. E NDOCRINOLOGY: Positive for n one. C ARDIOLOGY: shortness of breath Y es. G ASTROENTEROLOGY: hemorrhoids Y es. U ROLOGY: Positive for n one. D ERMATOLOGY: Positive for n one. N EUROLOGY: Positive for n one. H EMATOLOGY/LYMPH: Positive for n one. M USCULOSKELETAL: Positive for n one. P SYCHOLOGY: Positive for n one. M SUPA REPRODUCTIVE: Positive for n one. A ll other review of systems per the HPI and history, otherwise negative. Reviewed. * Medical History: * Surgical History: N o Surgical History documented. * Hospitalization/Major Diagno stic Procedure: N o Hospitalization History. * Family History: F ather: , diagnosed with Cancer. M other: alive, diagnosed with Diabetes, Hypertension. S iblings: alive, diagnosed with Diabetes. C hildren: alive, diagnosed with Atopic asthma w/o mention of status asthmaticus or acute exacerbation. 3 brother(s) . 2 son(s) . . brother has history of stroke mom stroke There is no other family history of cancer, CF, diabetes, emphysema or heart disease. * Social History: M arital Status What is your marital status? m arried A lcohol Screening Do you ever drink alcoholic beverages? Y es Number of drinks per occasion: 1 Frequency? E very 6 months S moking Additional Findings: Tobacco Non-User C urrent non-smoker Are you a : n ever smoker R ecreational drug use Have you ever used recreational drugs? N o D etails on consumption of certain products? Do you regularly consume products with aspartame; Equal or NutraSweet? N o Do you regularly consume products with artificial coloring??Yes Have you ever noticed worsening of your rash with these food items? N o A re any of the following personal care products containing fragrance, dye or preservatives used regularly? Shampoo: Y es Conditioner: N o Soap: Y es Laundry Detergent: Y es Fabric Softener: Y es Deodorant: Y es Perfume, cologne, after shave: N o Air freshners or other scented products: N o Hair coloring dyes or rinses: N o Other: N o O ccupation Are you currenly employed? 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 number of years?35 Do you believe that your current or previous occupation has any bearing on your illness? N o How much work have you missed due to breathing difficulty within the past year? 1 or 2 days Do you have any pending or planned legal action against your current or former employer which pertains to your medical illness? N o Do you anticipate that your evaluation will be used in any legal action against your current employer or former employer? 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 N o Are you currently a student? N o E nvironmental History Living environment: p rivate home Where is the home located? [place] Age of home: 3 5 How long have you lived there? 5 years or more How many people live in the home? 2 H ome description Basement: Y es Any water damage in basement? N o Smokers in the home? N o Smokers outside the home? N o Air Conditioning? Y es Central Air? Y es Forced air heating? Y es Gas or electric? g as Fireplace? Y es Used how often? o ther Wood burning stove? N o Do you vacuum the home? Y es Air purification systems? N o Pillow and mattress dust-proof encasings? N o Do you use a humidifier? N o Do you own any pets? Y es What kind(s)? (click all that apply) c ats Where do your pets sleep? o ther room in home Fabric softeners used? Y es Plants in the home? N o Is there carpeting in your bedroom? Y es Age of carpet? 6 Do you have [id number] carpeting? Y es What is the age of your carpeting? 6 What is the age of your mattress (years)? 5 What material(s) are used to manufacture your bedding and pillow? s ynthetic What is the age of your pillow (years)? 5 What material are your bedding items made of? s ynthetic Do you sleep with quilts or blankets or a duvet? Y es What material? n atural fiber (e.g. cotton) How many cats? 2 T obacco Control (Standard) Tobacco use: N onsmoker A CLARE-C (Standard) Did you have a drink containing alcohol in the past year? N o Points 0 Interpretation N egative * Medications: T akingSIT (TRADITIONAL) variable see record per schedule SC per schedule Vitamin D3 125 MCG (5000 UT) Capsule 1 cap(s) orally once a day amLODIPine Besylate 5 MG Tablet 1 tab(s) orally once a day Cetirizine HCl 10 MG Tablet 1 tab(s) orally once a day Aspirin 81 MG Tablet Delayed Release 1 tab(s) orally once a day Levothyroxine Sodium 25 MCG Tablet 1 tab(s) orally once a day Rosuvastatin Calcium 40 MG CAPSULE 1 TAB(S) ORALLY ONCE A DAY , Notes to Pharmacist: *Please review and pick correct strength-formulation from Medispan options. If intended option is not shown, discontinue and re-order from Quick Search*ALBUTEROL (EQV-PROVENTIL HFA) 90 MCG/INH AEROSOL INHALE 2 PUFFS EVERY 4 TO 6 HOURS, NEEDED AND PER THE ASTHMA ACTION PLAN , Notes to Pharmacist: *Please review for potential replacement for e-prescription and drug interaction check*Breo Ellipta 100-25 MCG/ACT Aerosol Powder Breath Activated USE 1 INHALATION BY MOUTH ONCE A DAY Taking SIT (TRADITIONAL) variable see record per schedule SC per schedule Taking Vitamin D3 125 MCG (5000 UT) Capsule 1 cap(s) orally once a day Taking amLODIPine Besylate 5 MG Tablet 1 tab(s) orally once a day Taking Cetirizine HCl 10 MG Tablet 1 tab(s) orally once a day Taking Aspirin 81 MG Tablet Delayed Release 1 tab(s) orally once a day Taking Levothyroxine Sodium 25 MCG Tablet 1 tab(s) orally once a day Taking Rosuvastatin Calcium 40 MG CAPSULE 1 TAB(S) ORALLY ONCE A DAY , Notes to Pharmacist: *Please review and pick correct strength-formulation from Stageit options. If intended option is not shown, discontinue and re-order from Quick Search*Taking ALBUTEROL (EQV-PROVENTIL HFA) 90 MCG/INH AEROSOL INHALE 2 PUFFS EVERY 4 TO 6 HOURS, NEEDED AND PER THE ASTHMA ACTION PLAN , Notes to Pharmacist: *Please review for potential replacement for e-prescription and drug interaction check*Taking Breo Ellipta 100-25 MCG/ACT Aerosol Powder Breath Activated USE 1 INHALATION BY MOUTH ONCE A DAY Not- Taking/PRNVITAMIN D3 5000 intl units capsule 1 cap(s) orally once a day AMLODIPINE 5 mg tablet 1 tab(s) orally once a day MUCINEX 600 mg tablet, extended release 1 tab(s) orally every 12 hours CETIRIZINE HYDROCHLORIDE 10 mg tablet 1 tab(s) orally once a day NASAL WASHES N/A 1 quart of sterilized tap water or distilled water, 1 tsp NaCl, 1 pinch of baking soda as directed intranasally as needed Mucinex 600 MG Tablet Extended Release 12 Hour 1 tab(s) orally every 12 hours Auvi-Q 0.3 MG/0.3ML Solution Auto-injector 0.3 mg intramuscularly once Montelukast Sodium 10 MG Tablet 1 tab(s) orally 30 mins prior to allergy shots Auvi-Q 0.3 MG/0.3ML Solution Auto-injector 0.3 mg intramuscularly once Trelegy Ellipta 100/62.5/25 MCG DPI 1 INHALATION PO QDAY , Notes to Pharmacist: *Please review and pick correct strength-formulation from Medispan options. If intended option is not shown, discontinue and re-order from Quick Search*Montelukast Sodium 10 MG Tablet 1 tab(s) orally once a day Trelegy Ellipta 200 MCG-62.5 MCG- 25 MCG/INH POWDER USE 1 INHALATION ORALLY ONCE DAILY , Notes to Pharmacist: *Please review and pick correct strength-formulation from Medispan options. If intended option is not shown, discontinue and re-order from Quick Search*Medication List reviewed and reconciled with the patientNot-Taking/PRN VITAMIN D3 5000 intl units capsule 1 cap(s) orally once a day Not-Taking/PRN AMLODIPINE 5 mg tablet 1 tab(s) orally once a day Not-Taking/PRN MUCINEX 600 mg tablet, extended release 1 tab(s) orally every 12 hours Not-Taking/PRN CETIRIZINE HYDROCHLORIDE 10 mg tablet 1 tab(s) orally once a day Not-Taking/PRN NASAL WASHES N/A 1 quart of sterilized tap water or distilled water, 1 tsp NaCl, 1 pinch of baking soda as directed intranasally as needed Not-Taking/PRN Mucinex 600 MG Tablet Extended Release 12 Hour 1 tab(s) orally every 12 hours Not-Taking/PRN Auvi-Q 0.3 MG/0.3ML Solution Auto-injector 0.3 mg intramuscularly once Not-Taking/PRN Montelukast Sodium 10 MG Tablet 1 tab(s) orally 30 mins prior to allergy shots Not-Taking/PRN Auvi-Q 0.3 MG/0.3ML Solution Auto-injector 0.3 mg intramuscularly once Not-Taking/PRN Trelegy Ellipta 100/62.5/25 MCG DPI 1 INHALATION PO QDAY , Notes to Pharmacist: *Please review and pick correct strength-formulation from Medispan options. If intended option is not shown, discontinue and re-order from Quick Search*Not-Taking/PRN Montelukast Sodium 10 MG Tablet 1 tab(s) orally once a day Not-Taking/PRN Trelegy Ellipta 200 MCG-62.5 MCG-25 MCG/INH POWDER USE 1 INHALATION ORALLY ONCE DAILY , Notes to Pharmacist: *Please review and pick correct strength-formulation from Medispan options. If intended option is not shown, discontinue and re-order from Quick Search*Medication List reviewed and reconciled with the patient * Allergies: N .K.D.A.no[Allergies Verified] Objective: * Vitals: B P:143/72mm Hg, HR:76/min, RR:17/min, Pulse Oximetry:100%, ACT:22, Ht: 70.25 in, Wt: 164.2 lbs, BMI:23.39Index. * Examination: G eneral examination: General appearance: p leasant, well-developed, well-nourished, male, in no apparent distress, speaking in full sentences, mild cough. HEENT: p upils equal, round, and reactive to light and accommodation, conjunctiva are normal bilaterally, no tenderness to palpation of the sinuses, TMs without evidence of acute infection, turbinates 2+ swollen inferiorly bilaterally, crusted blood in L nare with septal perforation present, no polyps noted, posterior oropharynx is erythematous without exudaets, tonsils are present, no tongue swelling, and uvula is midline. Oral cavity: n ormal, no lesions. Neck, thyroid : s upple, non-tender, no anterior cervical lymphadenopathy. Breasts : n ot performed. Heart: R RR, S1-S2, no murmurs, no rubs, no gallops. Lungs: c lear to auscultation and percussion in all lung tse, no wheezes or crackles. Abdomen: s oft, NT/ND, normal active bowel sounds. Neurologic exam: u nremarkable. Skin: n ormal, no rash, dermatographism, urticaria, angioedema. Peripheral pulses: n ormal (2+) bilaterally. Back: n ormal. Extremities: n ormal ROM, no clubbing, no cyanosis, no edema. Genitalia: n ot performed. Assessment: * Assessment: 1. M oderate persistent asthma, uncomplicated - J45.40 (Primary) 2 . A llergic rhinitis due to pollen - J30.1 3 . A llergic rhinitis due to animal (cat) (dog) hair and dander - J30.81 4 . O ther allergic rhinitis - J30.89 5. O ther specified disorders of nose and nasal sinuses - J34.89 6 . V itamin D deficiency, unspecified - E55.9 Plan: * Treatment: Value Reference Range S piroPreBronchodilator_FVC 4.07 * S piroPreBronchodilator_FEF25_75 4.07 * S piroPreBronchodilator_FEV1 3.4 * S piroPrecentPredictionPre_FEF25_75 124.5 * S piroPrecentPredictionPre_FEV1 94.7 * S piroPrecentPredictionPre_FEV1_OVER_FVC 108.1 * S piroPrecentPredictionPre_FVC 87.7 * S piroPredicted_FEF25_75 3.27 * S piroPreBronchodilator_FEV1_OVER_FVC 83.5 * S piroPreBronchodilator_PEF 7.86 * S piroPredicted_FVC 4.64 * S piroPredicted_FEV1 3.59 * S piroPredicted_FEV1_OVER_FVC 77.26 * S piroPredicted_PEF 8.47 * Normal spirometry by FEV1, F VC, and FEV%. FVL with end-expiratory scalloping and variable inspiratory effort Notes: Jeff returns today doing well. He did recently have a cold but lungs are clear. Continue to use MARKO and add on Mucinex PRN -Spirometry today is normal on Breo, previously stepped down from [facility] last year - IgE=87 -Last course of steroids and abx on 07/2023 - will watch symptoms in Fall -Recommend Flu RSV COVID vaccines. Also due for Prevnar later this year -Rinse out mouth after use and continue MARKO per AAP Follow-up in 3-6 months??2.?Allergic rhinitis due to pollen? Continue CETIRIZINE HYDROCHLORIDE tablet, 10 mg, 1 tab(s), orally, once a day, 30 days, 30, Refills2;?Continue NASAL WASHES 1 quart of sterilized tap water or distilled water, 1 tsp NaCl, 1 pinch of baking soda, N/A, as directed, intranasally, as needed, 30, QS, Refills PRN.?? Notes: Jeff clearly suffers from atopic disease based upon history and our previous skin testing (oak tree, weeds, cockroach, dog, dust mites, molds). -He continue avoidance measures and medications as above. -He opted to hold shots in March and has been doing well - closely monitor and if symptoms regress will resume dosing ??3.?Allergic rhinitis due to animal (cat) (dog) hair and dander? Notes:Continue allergen avoidance, meds and continue SCIT as an adjunctive treatment to current regimen??4.?Other allergic rhinitis? Notes:Continue allergen avoidance, meds and continue SCIT as an adjunctive treatment to current regimen??5.?Other specified disorders of nose and nasal sinuses? Notes:Otis has a visible perforation in his anterior nasal septum, diagnosed in March 2018 and confirmed by ENT. Josesito present on today's PE. -appears to be slightly larger, recommend f/u with Dr. Rodriguez. Presumed induced by chronic nasal pillow CPAP use, now using full face mask. Contune to avoid nasal sprays??6.?Vitamin D deficiency, unspecified? Notes: Continue 5000 IU QD??7.?Others? Continue VITAMIN D3 capsule, 5000 intl units, 1 cap(s), orally, once a day, 30 day(s), 30;?Continue AMLODIPINE tablet, 5 mg, 1 tab(s), orally, once a day;?Continue MUCINEX tablet, extended release, 600 mg, 1 tab(s), orally, every 12 hours.?? * Procedure Codes: 9 6160 PT-FOCUSED [facility] RISK [id number] DOC MEDS VERIFIED W/PT OR [id number] RESPIRATORY FLOW VOLUME LOOP * Preventive Medicine: Counseling: D iet a s tolerated. E xercise C ontinue activity as usual, Consider MARKO use PRN, prior to exercise as per the asthma action plan. M edication instruction: W atc for side effects of prescribed medications, Use prescribed inhaler(s) with spacer. If taking a inhaled corticorsteroid rinse out mouth after use and brush teeth. Oral hygiene reviewed at length. , [place] teeth or rinse out mouth after the use of oral, inhaled steroids to prevent oral thrush, Use 2 puffs of MARKO with spacer prior to exercise and environmental exposures known to cause wheezing, Reviewed boxed warning on prescribed medication, Singulair (montelukast: serious neuropsychiatric events have been reported in patients; monitor for neuropsychiatric symtoms. E ducation: G ENERAL EDUCATION:, Our staff spent an additional 30 minutes in direct contact with the patient educating them on their current diagnoses and proper treatment and prevention of symptoms and the proper use of medications, ASTHMA EDUCATION:, Our staff discussed pulmonary function testing and results with the patient/family, MEDICATION EDUCATION:, Reviewed boxed warning on prescribed medication, Singulair (montelukast: serious neuropsychiatric events have been reported in patients; monitor for neuropsychiatric symtoms. E ducation 2: A RC EDUCATION:, Our staff discussed the appropriate allergen avoidance measures and medication utilization including upper airway hygiene with nasal washes given the patient's clinical status and diagnoses, SCIT EDUCATION:, Discussed allergy immunotherapy including the relative risks, benefits and alternatives to this treatment as an adjunctive measure to current therapy, Allergy Immunotherapy: Risks: bleeding, infection, allergic reaction, anaphylaxis = severe allergic reaction that can cause ; Benefits: reduced need for medications, improved symptoms, disease modification. Alternatives: watch/wait, change medication regimen, improve allergy avoidance measures, Our staff discussed the warning signs of anaphylaxis and the indications to use self-injectable epinephrine and seek urgent or emergent care. P atient education material sent to portal? Y es C are goal follow up plan BMI management provided Y es Above Normal BMI Follow-up W eight monitoring B P Management: FIRST HYPERTENSIVE BP READING FOLLOW-UP PLAN: F ollow-up 1 month REFERRAL TO ALTERNATIVE / PRIMARY CARE PROVIDER: Johnny mahajan to general practitioner Screenings: F all Risk Fall Risk Assessment: N o falls in the past year * Follow Up: 3 -6 Months (Reason: Evaluation and Management) * Billing Information: * Visit Code: 83122 Office Visit, Est Pt., Level 4. Modifiers: 25 * Procedure Codes: 66565 PT-FOCUSED HLTH RISK ASSMT. G8427 DOC MEDS VERIFIED W/PT OR RE. A4617 Mouthpiece. 15816 RESPIRATORY FLOW VOLUME LOOP. * CTOR LOSS PREVENTION Sign off status: Completed true * Provider: Titi Frances PA-C Date: 0 12/31/2024 Generated for Melida cobb/Henna/eTransmitting on: 0 02/11/2025 01:04 PM CDT History and Physical Notes * HPI (History of Present Illness) Category Sub-Category Detail Notes Category Not es *Introduction I had the pleasure of seeing Otis Escoto (Don), a 64-year-old male with allergic rhinitis, chronic cough with asthma component, ELKIN on CPAP and GERD who returns today for interval evaluation and management and SCIT. The last few months he has been doing well. He is getting over a cold from last week, mild cough and drainage. Using MARKO with benefit. No other symptoms. From an allergy standpoint he has no compliants. He opted to hold shots in March 2024. Minimal drainage noted but feels well. Previously on Trelegy 200, now back on Breo. He was stepped up from [facility] after having having bronchitis on 07/2023 after returning from [place], did not seek care while in [place]. Received prednisone and Zpack x7 days Last prednisone use was prior to recent illness was 02/2018 for cough. He continued to have lingering asthma syptoms. Since that time he has been doing well. Previously had PNA in 2019. Treated outpatient. He is on PPI for GERD. He has no allergy complaints today, on daily cetirizine and SCIT. Remains on monthly maintenance since 12/2018. He tolerates SCIT with Zyrtec/Singulair premedication. Tried to reduce Zyrtec over Fall/Winter but resumed in Aug due to increased drainage.He refrains from nasal sprays due to nasal septum perforation. He does have a history of frequent pulmonary infections, and PIDD workup done in 2018 and notable for poor S. pneumo protection and Vitamin D deficiency. Now s/p Pneumovax with now protective titers, and s/p Vitamin D suzette doses with normal Vitamin D. He is on 5k IU/day. Today, he reports no fevers, chills, night sweats or other constitutional symptoms Asthma follow-up Asthma Survey - Classification Asthma severity classification: Moderate Persistent *Allergic Rhinoconjunctivitis *Asthma *Infections *Other Rash and Contact Dermatitis *Atopic dermatitis *Urticaria *Medication allergy *Stinging Insects *Prior Evaluations and Treatments *Food allergy *Eosinophilic GI *Angioedema Examination Category Sub-Category Detail Notes Category Not es General examination HEENT: pupils equal , round, and reactive to light and accommodation, conjunctiva are normal bilaterally, no tenderness to palpation of the sinuses, TMs without evidence of acute infection, turbinates 2+ swollen inferiorly bilaterally, crusted blood in L nare with septal perforation present, no polyps noted, posterior oropharynx is erythematous without exudaets, tonsils are present, no tongue swelling, and uvula is midline Neck, thyroid : supple, non-tender, no anterior cervical lymphadenopathy Heart: RRR, S1-S2, no murmu rs, no rubs, no gallops Lungs: clear to auscultatio n and percussion in all lung tse, no wheezes or crackles Abdomen: soft, NT/ND, normal active bowel sounds Extremities: normal ROM, no clubb ing, no cyanosis, no edema General appearance: pleasant, well-devel oped, well-nourished, male, in no apparent distress, speaking in full sentences, mild cough Skin: normal, no rash, jessee matographism, urticaria, angioedema Neurologic exam: unremarkable Oral cavity: normal, no lesions Breasts : not performed Peripheral pulses: normal (2+) bilatera lly Back: normal Genitalia: not performed
--- NOTE | 2025-02-11 14:53 | ED.GENADULT ---
HPI - General Adult General Chief complaint: Upper Respiratory Infection Stated complaint: cough, fever, sob Time Seen by Provider: 02/11/25 14:35 History of Present Illness HPI narrative: 64-year-old male presenting to the emergency department for evaluation for worsening shortness of breath has been recurrent over the last week. Patient does report productive cough and body aches and fatigue. Related Data Home Medications ?Medication ?Instructions ?Recorded ?Confirmed ?Last Taken ?Type albuterol sulfate 90 mcg/actuation 1 inh inhalation Q4-6H PRN 01/26/25 01/26/25 Unknown History breath activated powder inhaler amlodipine 5 mg tablet 5 mg PO DAILY 01/26/25 01/26/25 Unknown History aspirin 81 mg capsule 81 mg PO DAILY 01/26/25 01/26/25 Unknown History cetirizine 10 mg capsule (Zyrtec) 10 mg PO DAILY PRN 01/26/25 01/26/25 Unknown History fluticasone furoate 100 1 inh inhalation DAILY 01/26/25 01/26/25 Unknown History mcg-vilanterol 25 mcg/dose inhalation powder (Breo Ellipta) levothyroxine 50 mcg tablet 50 mcg PO DAILY 01/26/25 01/26/25 Unknown History rosuvastatin 40 mg tablet 40 mg PO DAILY 01/26/25 01/26/25 Unknown History Allergies Allergy/AdvReac Type Severity Reaction Status Date / Time No Known Allergies Allergy Unverified 01/26/25 12:55 Review of Systems Review of Systems: All systems reviewed & are unremarkable except as noted in HPI and below PMFSH Family History Family History Father Family history of malignant neoplasm of stomach Family history of malignant neoplasm of esophagus Mother Family history of diabetes mellitus in first degree relative Hypertension Cerebrovascular accident Sibling Hypertension Diabetes mellitus Social History Social History Smoking status: Never smoker Alcohol intake: never Substance use: never Do You Feel Safe in your Home?: Yes Lack of Transportation: No Lack of Food: Never True Current Housing: I Have Housing Concerned About Future Housing: No Difficulty Paying Gas/Electric Bills: No Difficulty Paying for Meds: No Currently Unemployed: No Education: Master's Degree or Higher Difficulty w/ Childcare or Family Care: No Exam Narrative: APPEARANCE: Well appearing, no pain, no distress, well-nourished. HEAD: normocephalic, atraumatic. EYES: PERRLA/EOMI, conjunctivae clear. NOSE: Normal no drainage EARS:TMS clear with good light reflex. THROAT: Pharynx clear, no exudate. NECK: Supple. No adenopathy, no masses. RESPIRATORY: Bilateral congested lung sounds with expiratory wheeze CARDIOVASCULAR: Regular rate and rhythm without murmurs rubs or gallops. ABDOMINAL: Soft, nontender, nondistended, normal bowel sounds MUSCULOSKELETAL: Moves all extremities. Strength/ROM intact, No edema, No calf tenderness. NEURO: Alert. Cranial nerves II through XII intact. Good gait. Good coordination SKIN: Warm, dry. Normal Color Course Vital Signs Vital signs: Vital Signs Temperature 97.8 F 02/11/25 12:54 Pulse Rate 103 H 02/11/25 12:54 Respiratory Rate 20 02/11/25 12:54 Blood Pressure 125/69 02/11/25 12:54 Pulse Oximetry 98 02/11/25 12:54 Oxygen Delivery Room Air 02/11/25 12:54 Temperature 98.6 F 02/11/25 17:01 Pulse Rate 106 H 02/11/25 17:01 Respiratory Rate 20 02/11/25 17:01 Blood Pressure 131/75 02/11/25 17:01 Pulse Oximetry 99 02/11/25 17:01 Oxygen Delivery Room Air 02/11/25 13:40 Medical Decision Making [facility] Narrative Medical decision making narrative: 64-year-old male presenting to the emergency department for evaluation for cough and congestion this been ongoing for greater than 1 week. X-ray showed no acute cardiopulmonary abnormality. Patient was negative for influenza RSV and for COVID. Patient did feel improved after having a breathing treatment. Patient will be treated with antibiotics due to the duration his upper respiratory infection. Patient family updated the results of the workup and plan for treatment. Patient will be prescribed did albuterol, Tessalon Perles, Augmentin and a Z-Kolton Differential Diagnosis Differential Diagnosis: COVID, RSV influenza, pneumonia Vital Signs Vital Signs: Vital Signs Temperature 97.8 F 02/11/25 12:54 Pulse Rate 103 H 02/11/25 12:54 Respiratory Rate 20 02/11/25 12:54 Blood Pressure 125/69 02/11/25 12:54 Pulse Oximetry 98 02/11/25 12:54 Oxygen Delivery Room Air 02/11/25 12:54 Temperature 98.6 F 02/11/25 17:01 Pulse Rate 106 H 02/11/25 17:01 Respiratory Rate 20 02/11/25 17:01 Blood Pressure 131/75 02/11/25 17:01 Pulse Oximetry 99 02/11/25 17:01 Oxygen Delivery Room Air 02/11/25 13:40 Lab Data Lab results reviewed: Yes I reviewed the patient's lab results. Labs: Lab Results 02/11/25 Range/Units 14:31 Influenza A (RT-PCR) Negative (Negative) Influenza B (RT-PCR) Negative (Negative) RSV (RT-PCR) Negative (Negative) SARS-CoV-2 RNA (RT-PCR) Negative (Negative) Imaging Data Radiologist's impression: Impressions Chest X-Ray 02/11/25 16:01 IMPRESSION: No focal infiltrate or effusion. Discharge Plan Discharge Clinical Impression: Pneumonia Patient Disposition: Home Condition: Stable Instructions: Antibiotic Form, Pneumonia (ED) Additional Instructions: Antibiotic as directed until completed. Albuterol inhaler for shortness of breath and Tessalon Perles for cough. Have close follow-up with your primary care physician. If you have any worsening symptoms and please call or return to the emergency department. Patient Language: Norwegian Prescriptions: New azithromycin 250 mg tablet See Rx Instructions .ROUTE .COMPLEX Qty: 6 0RF Rx Instructions: For 250 mg dose pack: take 500 mg today (day 1), then 250 mg for 4 days (days 2-5) benzonatate 100 mg capsule 100 mg PO TID PRN (Reason: cough) Qty: 14 0RF albuterol sulfate 90 mcg/actuation HFA aerosol inhaler 1 puff inhalation QID Qty: 6.7 0RF amoxicillin-pot clavulanate 875-125 mg tablet 1 tablet PO Q12H 7 Days Qty: 14 0RF No Action fluticasone furoate-vilanterol [Breo Ellipta] 100-25 mcg/dose blister with device 1 inh inhalation DAILY amlodipine 5 mg tablet 5 mg PO DAILY rosuvastatin 40 mg tablet 40 mg PO DAILY levothyroxine 50 mcg tablet 50 mcg PO DAILY aspirin 81 mg capsule 81 mg PO DAILY Zyrtec 10 mg capsule 10 mg PO DAILY PRN albuterol sulfate 90 mcg/actuation aerosol powdr breath activated 1 inh inhalation Q4-6H PRN omeprazole 20 mg capsule,delayed release(DR/EC) 20 mg PO DAILY Qty: 90 1RF triamcinolone acetonide 0.1 % cream 1 applic topical BID PRN (Reason: eczema flare) Qty: 30 4RF ergocalciferol (vitamin D2) [Vitamin D2] 1,250 mcg (50,000 unit) capsule 1,250 mcg PO WEEKLY Qty: 12 1RF Follow-up/Referrals: Maame Skinner DO [Primary Care Provider] -
[2025-02-11] MEDS: ALBUTEROL SULFATE NEB 2.5 MG/3 ML INH 5 MG INHALATION (15:06)
--- OUTSIDE RECORDS SUMMARY | 2025-02-11 15:07 | XMS_ITS ---
Author Organization [facility] Address [address] [place] [address] Care Team Providers Care Mineral Resources Inspector Name Role Phone Denia Skinnerna Primary Care Provider Jaskaran Wall [phone] REASON FOR VISIT Refills Medications Medication SIG (Take, Route, Frequency, Duration) Notes Start Date End Date Status Breo Ellipta 100-25 MCG/ACT USE 1 PUFF BY MOUTH ONCE A DAY for 90 Active Encounters Encounter Location Date Provider Diagnosis [facility] [address] [place] [address] 09/07/2024 Jaskaran Worthy Moderate persistent asthma, uncomplicated J45.40 Assessments Encounter Date Diagnosis (ICD Code) Assessment Notes Treatment Notes Treatment Clinical Notes Section Notes 09/07/2024 Moderate persistent asthma, uncomplicated (ICD-10 - J45.40) Plan Of Treatment Medication Medication Name Sig Start Date Stop Date Notes Breo Ellipta 100-25 MCG/ACT USE 1 PUFF B Y MOUTH ONCE A DAY for 90 Next Appt Details Provider Name:Clarisa Frances , 07/15/2025 09:00:00 AM, [address], [address], [place], [address], Progress Notes * Otis ESCOTODOB: (63 yo M)Acc No.[id number]:09/07/2024 Patient: Otis MUNOZ :1960 A ge:63 Y S ex:Male Address:[facility] [address] [place], [address] * Refills Refill Breo Ellipta Aerosol Powder Breath Activated, 100-25 MCG/ACT, 180 Each, USE 1 PUFF BY MOUTH ONCE A DAY, 90, Refills=0 * true * Date: Generated for Melida cobb/Henna/Mariah on: 0 02/11/2025 03:06 PM CDT
--- OUTSIDE RECORDS SUMMARY | 2025-02-11 15:07 | XMS_ITS | Patient Health Record ---
Author Organization [facility] Address [address] [place] [address] Care Team Providers Care Plastics Technician Name Role Phone Susanne Maame Primary Care Provider UnavailJaskaran Stafford Unavailable [phone] Clarisa Frances Unavailable [phone] [facility], Provider Unavailable Unavailab le Allergies No Known Allergies Results Component Value Reference Range Notes Spirometry Reviewed date:07/02/2024 08:48:43 AM Interpretation:Normal Performing Lab: Notes/Report: Normal SpiroPreBronchodilator_FVC 4.1 SpiroPostBronchodilator_FEF25_75 0 SpiroPreBronchodilator_FEF25_75 3.83 SpiroPreBronchodilator_FEV1 3.36 SpiroPrecentPredictionPost_FEF25_75 0 SpiroPrecentPredictionPost_FEV1 0 SpiroPrecentPredictionPost_FEV1_OVER_FVC 0 SpiroPrecentPredictionPost_FVC 0 SpiroPrecentPredictionPre_FEF25_75 116.1 SpiroPrecentPredictionPre_FEV1 93.1 SpiroPrecentPredictionPre_FEV1_OVER_FVC 105.8 SpiroPrecentPredictionPre_FVC 87.8 SpiroPredicted_FEF25_75 3.3 SpiroPreBronchodilator_FEV1_OVER_FVC 81.87 SpiroPreBronchodilator_PEF 7.36 SpiroPostBronchodilator_FVC 0 SpiroPostBronchodilator_FEV1 0 SpiroPostBronchodilator_FEV1_OVER_FVC 0 SpiroPostBronchodilator_PEF 0 SpiroPredicted_FVC 4.67 SpiroPredicted_FEV1 3.61 SpiroPredicted_FEV1_OVER_FVC 77.41 SpiroPredicted_PEF 8.5 Spirometry Reviewed date:12/31/2024 09:18:43 AM Interpretation:Normal Performing Lab: Notes/Report: Normal SpiroPreBronchodilator_FVC 4.07 SpiroPostBronchodilator_FEF25_75 0 SpiroPreBronchodilator_FEF25_75 4.07 SpiroPreBronchodilator_FEV1 3.4 SpiroPrecentPredictionPost_FEF25_75 0 SpiroPrecentPredictionPost_FEV1 0 SpiroPrecentPredictionPost_FEV1_OVER_FVC 0 SpiroPrecentPredictionPost_FVC 0 SpiroPrecentPredictionPre_FEF25_75 124.5 SpiroPrecentPredictionPre_FEV1 94.7 SpiroPrecentPredictionPre_FEV1_OVER_FVC 108.1 SpiroPrecentPredictionPre_FVC 87.7 SpiroPredicted_FEF25_75 3.27 SpiroPreBronchodilator_FEV1_OVER_FVC 83.5 SpiroPreBronchodilator_PEF 7.86 SpiroPostBronchodilator_FVC 0 SpiroPostBronchodilator_FEV1 0 SpiroPostBronchodilator_FEV1_OVER_FVC 0 SpiroPostBronchodilator_PEF 0 SpiroPredicted_FVC 4.64 SpiroPredicted_FEV1 3.59 SpiroPredicted_FEV1_OVER_FVC 77.26 SpiroPredicted_PEF 8.47 Reason For Referral No Information Medications Medication SIG (Take, Route, Frequency, Duration) Notes Start Date End Date Status Trelehoney Ellipta 100/62.5/25 MCG 1 INHALATION PO QDAY for 30 DAY(S) *Please review and pick correct strength-formula tion from [facility] options. If intended option is not shown, discontinue and re-order from Quick Search* Not-Taking VITAMIN D3 5000 intl units 1 cap(s) orally once a day for 30 day(s) Active Rosuvastatin Calcium 40 MG 1 TAB(S) ORALLY ONCE A DAY *Please review and pick correct strength-formula tion from [employer] [facility] options. If intended option is not shown, discontinue and re-order from Quick Search* 08/02/2022 Active Auvi-Q 0.3 MG/0.3ML 0.3 mg intramuscularly once for 1 days Not-Taking Montelukast Sodium 10 MG 1 tab(s) orally 30 mins prior to allergy shots for 30 day(s) Not-Taking CETIRIZINE HYDROCHLORIDE 10 mg 1 tab(s) orally once a day for 30 days Active SIT (TRADITIONAL) variable per schedule SC per schedule Active NASAL WASHES N/A as directed intranasally as needed for 30 Active AMLODIPINE 5 mg 1 tab(s) orally once a day Active Trelegy Ellipta 200 MCG-62.5 MCG-25 MCG/INH USE 1 INHALATION ORALLY ONCE DAILY for 90 *Please review and pick correct strength-formula tion from [employer] [facility] options. If intended option is not shown, discontinue and re-order from Quick Search* Not-Taking MUCINEX 600 mg 1 tab(s) orally every 12 hours Active Breo Ellipta 100-25 MCG/ACT USE 1 INHALATION BY MOUTH ONCE A DAY for 90 Active Montelukast Sodium 10 MG 1 tab(s) orally once a day for 90 days Not-Taking Aspirin 81 MG 1 tab(s) orally once a day Active Auvi-Q 0.3 MG/0.3ML 0.3 mg intramuscularly once Not-Taking Cetirizine HCl 10 MG 1 tab(s) orally once a day for 30 days Active Mucinex 600 MG 1 tab(s) orally every 12 hours Not-Taking amLODIPine Besylate 5 MG 1 tab(s) orally once a day Active ALBUTEROL (EQV-PROVENTIL HFA) 90 MCG/INH INHALE 2 PUFFS EVERY 4 TO 6 HOURS, NEEDED AND PER THE ASTHMA ACTION PLAN *Please review for potential replacement for e-prescription and drug interaction check* Active Vitamin D3 125 MCG (5000 UT) 1 cap(s) orally once a day for 30 day(s) Active Breo Ellipta 100-25 MCG/ACT 1 puff Inhalation Once a day for 90 days 12/31/2024 Active Levothyroxine Sodium 25 MCG 1 tab(s) orally once a day for 30 day(s) Active Immunizations Vaccine Route Administration Date Status Comme nts Fluzone High Dose IM Intramuscular 07/04/2024 Administered Influenza Unknown 09/10/2016 Administered NOC Flucelvax Quadrivalent Unknown 08/20/2017 Administe red NOC Flucelvax Quadrivalent Unknown 07/31/2018 Refused NOC Fluzone Quadrivalent Unknown 01/01/2019 Refused NOC Influenza-Fluzone Unknown 10/29/2019 Administered NOC Prevnar 20 IM Intramuscular 07/29/2024 Administered Pneumovax 23 IM Intramuscular 07/14/2019 Administered Social History Tobacco Use: Social History Observation Description Date Details (start date - stop date) Never Smoker NA - NA Tobacco Control (Standard) Question Answer Notes Tobacco use: Nonsmoker AUDIT-C (Standard) Question Answer Notes Did you have a drink containing alcohol in the p ast year? No Points 0 Interpretation Negative Problems Problem Type SNOMED Code ICD Code Onset Dates Problem Status W/U Status Risk Notes Problem Hyperlipidemia (70174374) Hyperlipidemia, unspecified (E78.5) Active confirmed Problem Obstructive sleep apnea syndrome (disorder) (67259929) Obstructive sleep apnea (adult) (pediatric) (G47.33) Active confirmed Problem Chronic allergic conjunctivitis (67205695) Other chronic allergic conjunctivitis (H10.45) Active confirmed Problem Allergic rhinitis caused by pollen (disorder) (01539744) Allergic rhinitis due to pollen (J30.1) Active confirmed Problem Allergic rhinitis caused by animal hair and dander (229525743782275) Allergic rhinitis due to animal (cat) (dog) hair and dander (J30.81) Active confirmed Problem Allergic rhinitis (81814096) Other allergic rhinitis (J30.89) Active confirmed Problem Disorder of nasal sinus (disorder) (6250264) Other specified disorders of nose and nasal sinuses (J34.89) Active confirmed Problem Uncomplicated moderate persistent asthma (434876965) Moderate persistent asthma, uncomplicated (J45.40) Active confirmed Problem Allergic rhinitis caused by pollen (disorder) (09623888) Allergic rhinitis due to pollen (J30.1) Active confirmed Problem Allergic rhinitis caused by animal hair and dander (218348388447601) Allergic rhinitis due to animal (cat) (dog) hair and dander (J30.81) Active confirmed Problem Allergic rhinitis (04275732) Other allergic rhinitis (J30.89) Active confirmed Problem Chronic allergic conjunctivitis (68308352) Other chronic allergic conjunctivitis (H10.45) Active confirmed Problem Elevated blood pressure reading without diagnosis of hypertension (904173437) Elevated blood-pressure reading, without diagnosis of hypertension (R03.0) Active confirmed Problem Essential hypertension (07443536) Essential (primary) hypertension (I10) Active confirmed Problem Vitamin D deficiency (15136102) Vitamin D deficiency, unspecified (E55.9) Active confirmed Problem Chronic cough (02861289) Chronic cough (R05.3) Active confirmed Vital Signs Respiratory Rate 17 /min 12/31/2024 Oximetry 100 % 12/31/2024 Blood pressure diastolic 72 mm Hg 12/31/2024 Height 70.25 in 12/31/2024 Blood pressure systolic 143 mm Hg 12/31/2024 Weight 164.2 lbs 12/31/2024 BMI 23.39 kg/m2 12/31/2024 Encounters Encounter Location Date Provider Diagnosis [address] [address] 04/11/2024 Provider [facility] Allergic rhinitis due to pollen J30.1 and Moderate persistent asthma, uncomplicated J45.[address] [address] 02/27/2024 Jaskaran Worthy Allergic rhinitis du e to pollen J30.1 ; Other allergic rhinitis J30.89 ; Allergic rhinitis due to animal (cat) (dog) hair and dander J30.81 ; Other chronic allergic conjunctivitis H10.45 and Cough R05 [address] [address] 04/02/2024 Clarisa Young Moderate persistent asthma, uncomplicated J45.40 ; Allergic rhinitis due to pollen J30.1 ; Allergic rhinitis due to animal (cat) (dog) hair and dander J30.81 ; Other allergic rhinitis J30.89 ; Other specified disorders of nose and nasal sinuses J34.89 and Vitamin D deficiency, unspecified E55.[address] [address] 04/23/2024 Jaskaran Worthy Allergic rhinitis du e to pollen J30.1 ; Other allergic rhinitis J30.89 ; Allergic rhinitis due to animal (cat) (dog) hair and dander J30.81 ; Other chronic allergic conjunctivitis H10.45 and Cough R05 [address] [address] 07/02/2024 Clarisa Young Moderate persistent asthma, uncomplicated J45.40 ; Allergic rhinitis due to pollen J30.1 ; Allergic rhinitis due to animal (cat) (dog) hair and dander J30.81 ; Other allergic rhinitis J30.89 ; Other specified disorders of nose and nasal sinuses J34.89 and Vitamin D deficiency, unspecified E55.[address] [address] 12/31/2024 Clarisa Frances Moderate persistent asthma, uncomplicated J45.40 ; Allergic rhinitis due to pollen J30.1 ; Allergic rhinitis due to animal (cat) (dog) hair and dander J30.81 ; Other allergic rhinitis J30.89 ; Other specified disorders of nose and nasal sinuses J34.89 and Vitamin D deficiency, unspecified E55.[address] [address] 03/31/2024 Jaskaran Worthy Moderate persistent asthma, uncomplicated J45.[address] [address] 09/07/2024 Jaskaran Worthy Moderate persistent asthma, uncomplicated J45.[address] [address] 03/31/2024 Jaskaran Worthy Moderate persistent asthma, uncomplicated J45.40 Assessments Encounter Date Diagnosis (ICD Code) Assessment Notes Treatment Notes Treatment Clinical Notes Section Notes 03/31/2024 Moderate persistent asthma, uncomplicated (ICD-10 - J45.40) 03/31/2024 Moderate persistent asthma, uncomplicated (ICD-10 - J45.40) 04/02/2024 Allergic rhinitis due to pollen (ICD-10 - J30.1) Don clearly suffers from atopic disease based upon history and our previous skin testing (oak tree, weeds, cockroach, dog, dust mites, molds). -He continue avoidance measures and medications as above. -SCIT received today and tolerated without local or systemic reaction. -Will reduce meds and see if can stop shots in the next year - he still benefits from Zyrtec + Singulair pre-med on shot days. He resumedZyrtec daily. Will seee how the next few months/seasons go before we stop his shots - consider reformulation -AIE on hand and up to date. -Increase frequency PRN in peak seasons 02/27/2024 Allergic rhinitis due to pollen (ICD-10 - J30.1) 04/02/2024 Moderate persistent asthma, uncomplicated (ICD-10 - J45.40) Don returns today doing well. -Spirometry last visit with 11% improvement in FEV1 since starting Trelegy. Doing well the past year so Mindy recommended stepping down to Breo -Last visit CBC and IgE for screening for biologics was done. IgE=87 -Last course of steroids and abx on 08/17. Continue to monitor steroid use -Rinse out mouth after use and continue MARKO per AAP Follow-up in 3-4 months 04/11/2024 Allergic rhinitis due to pollen (ICD-10 - J30.1) 04/11/2024 Moderate persistent asthma, uncomplicated (ICD-10 - J45.40) 04/23/2024 Allergic rhinitis due to pollen (ICD-10 - J30.1) 07/02/2024 Allergic rhinitis due to pollen (ICD-10 - J30.1) Jeff clearly suffers from atopic disease based upon history and our previous skin testing (oak tree, weeds, cockroach, dog, dust mites, molds). -He continue avoidance measures and medications as above. -He opted to hold shots in March and has been doing well - closely monitor and if symptoms regress will resume dosing 07/02/2024 Moderate persistent asthma, uncomplicated (ICD-10 - J45.40) Don returns today doing well. -Spirometry today is normal on Breo, stepped down on Trelegy -Last visit CBC and IgE for screening for biologics was done. IgE=87 -Last course of steroids and abx on 07/2023 - will watch symptoms in Fall -Recommend Flu RSV COVID vaccines. Also due for Prevnar later this year -Rinse out mouth after use and continue MARKO per AAP Follow-up in 3-6 months 09/07/2024 Moderate persistent asthma, uncomplicated (ICD-10 - J45.40) 12/31/2024 Allergic rhinitis due to pollen (ICD-10 - J30.1) Don clearly suffers from atopic disease based upon history and our previous skin testing (oak tree, weeds, cockroach, dog, dust mites, molds). -He continue avoidance measures and medications as above. -He opted to hold shots in March and has been doing well - closely monitor and if symptoms regress will resume dosing 12/31/2024 Moderate persistent asthma, uncomplicated (ICD-10 - J45.40) Don returns today doing well. He did recently [...] 3-6 months 12/31/2024 Allergic rhinitis due to animal (cat) (dog) hair and dander (ICD-10 - J30.81) Continue allergen avoidance, meds and continue SCIT as an adjunctive treatment to current regimen 07/02/2024 Allergic rhinitis due to animal (cat) (dog) hair and dander (ICD-10 - J30.81) Continue allergen avoidance, meds and continue SCIT as an adjunctive treatment to current regimen 02/27/2024 Other allergic rhinitis (ICD-10 - J30.89) 04/23/2024 Other allergic rhinitis (ICD-10 - J30.89) 04/02/2024 Allergic rhinitis due to animal (cat) (dog) hair and dander (ICD-10 - J30.81) Continue allergen avoidance, meds and continue SCIT as an adjunctive treatment to current regimen 02/27/2024 Allergic rhinitis due to animal (cat) (dog) hair and dander (ICD-10 - J30.81) 04/02/2024 Other allergic rhinitis (ICD-10 - J30.89) Continue allergen avoidance, meds and continue SCIT as an adjunctive treatment to current regimen 04/23/2024 Allergic rhinitis due to animal (cat) (dog) hair and dander (ICD-10 - J30.81) 07/02/2024 Other allergic rhinitis (ICD-10 - J30.89) Continue [...] in March 2018 and confirmed by ENT. Sitll present on today's PE. -appears to be slightly larger, recommend f/u with Dr. Rodriguez. Presumed induced by chronic nasal pillow CPAP use, now using full face mask. 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 Sitll present on today's PE. -appears to be slightly larger, recommend f/u with Dr. Rodriguez. Presumed induced by chronic nasal pillow CPAP use, now using full face mask. 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 Sitll present on today's PE. -appears to be slightly larger, recommend f/u with Dr. Rodriguez. Presumed induced by chronic nasal pillow CPAP use, now using full face mask. Contune to avoid nasal sprays 02/27/2024 Other chronic allergic conjunctivitis (ICD-10 - H10.45) 02/27/2024 Cough (ICD-10 - R05) 04/02/2024 Vitamin D deficiency, unspecified (ICD-10 - E55.9) Continue 5000 IU QD 04/23/2024 Cough (ICD-10 - R05) 07/02/2024 Vitamin D deficiency, unspecified (ICD-10 - E55.9) Continue 5000 IU QD 12/31/2024 Vitamin D deficiency, unspecified (ICD-10 - E55.9) Continue 5000 IU QD 04/02/2024 Other 07/02/2024 Other 12/31/2024 Other Plan Of Treatment Pending Test Test Name Order Date X ray : Chest 09/28/2021 Next Appt Details Provider Name:Clarisa Frances , 07/15/2025 09:00:00 AM, [address] [facility], [address], [place], [address], Insurance Providers Payer Name Payer Address Payer Phone Subscriber Number Group Number Insured Name Patient Relationship to Insured Coverage Start Date Coverage End Date [employer] [facility] (Medicare) Attention Claims [address] [place] [address] [id number] Otis Escoto Self - patient is the insured 4 [facility] [address] [place] [address] [id number] TigistOtis marcelino Self - patient is the insured 4 Medical (General) History Medical History History ICD Code Allergic rhinitis due to pollen Allergic rhinitis due to animal (cat) (d og) hair and dander Other allergic rhinitis Cough Gastro-esophageal reflux disease without esophagitis Simple chronic bronchitis Walking pneumonia December 2015 Vitamin D deficiency, unspecified E55.9 Hyperlipidemia, unspecified E78.5 Surgical History Surgery Date(Month/Year)
--- OUTSIDE RECORDS SUMMARY | 2025-02-11 15:07 | XMS_ITS | Referral Summary ---
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
--- OUTSIDE RECORDS SUMMARY | 2025-02-11 15:07 | XMS_ITS | Clinical Summary ---
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
--- OUTSIDE RECORDS SUMMARY | 2025-02-11 15:07 | XMS_ITS | Clinical Summary ---
Author Organization [facility] Address [address] [place] [address] Care Team Providers Care Club Director Name Role Phone Ward Sher MD Primary Care Provider [phone] Source Comments [facility],non-owned Affiliates and Associated Physician Practices is amultiple site organization consisting of ambulatory clinics and hospital sitesin [place], [place], [place] and [place]. This disclosure is being madepursuant to the Care Everywhere program and may not contain all information available regarding this patient. 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 Gender Identity Not on file Sexual Orientation Not on file Last Filed Vital Signs Vital Sign Reading Time Taken Comments Blood Pressure 124/70 09/09/2021 10:50 AM CLEANING VALIDATION CONSULTANT Pulse 91 09/09/2021 10:35 AM CLEANING VALIDATION CONSULTANT Temperature 37.1 C (98.7 F) 08/29/2021 11:02 AM CDT Respiratory Rate 18 08/29/2021 11:02 AM CDT Oxygen Saturation 98% 09/09/2021 10:35 AM CLEANING VALIDATION CONSULTANT Inhaled Oxygen Concentration - - Weight 84.4 kg (186 lb) 09/09/2021 10:35 AM CLEANING VALIDATION CONSULTANT Height 180.3 cm (5' 11 ) 09/09/2021 10:35 AM CLEANING VALIDATION CONSULTANT Body Mass Index 25.94 09/09/2021 10:35 AM CLEANING VALIDATION CONSULTANT Plan of Treatment Health Maintenance Due Date [...] to complete this [place] [address] MEDICARE [facility] Care Teams Club Director Relationship Specialty Start Date End Date Ward Sher MD [address] [place] [id number] PCP - General Family Medicine 11/29/17
--- OUTSIDE RECORDS SUMMARY | 2025-02-11 15:07 | XMS_ITS | Clinical Summary ---
Author Organization [facility] Address [address] [place] [address] Phone Care Team Providers Care Diesel Service Technician Name Role Phone Ward Sher MD Primary Care Provider [phone] Allergies No known active allergies Medications No [...] (1 - 1-dose 75+ series) 2033 Insurance [facility] Confide/[employer] PPO Care Teams Diesel Service Technician Relationship Specialty Start Date End Date Ward Sher MD [facility] [place] [address] PCP - General Family Practice 05/02/15
--- OUTSIDE RECORDS SUMMARY | 2025-02-11 15:07 | XMS_ITS ---
Author Organization [facility] Address [address] [place] [address] Care Team Providers Care Processing Archivist Name Role Phone Maame Skinner Primary Care Provider Jaskaran Wall Unavailable [phone] Clarisa Frances Unavailable [phone] Allergies No Known Allergies Results Component Value [...] 4.67 SpiroPredicted_FEV1 3.61 SpiroPredicted_FEV1_OVER_FVC 77.41 SpiroPredicted_PEF 8.5 REASON FOR VISIT Cough f/u, stepped down from Trelegy 200 to Breo last visit. ACT=25. No recent antibotics or steroids., ARC f/u, Stopped shots in 03/2024. Minimal drainage noted off treatment., Previously treated forH pylori in 2022. Food was getting stuck - doing better since treatment., No interval vision changes - previously with temporary lost vision in L eye - s/p US of carotid - normal CT with Neurology. [place] he has early signs of Parkisons Medications Medication SIG (Take, Route, Frequency, Duration) Notes Start Date End Date Status CETIRIZINE HYDROCHLORIDE 10 mg 1 tab(s) orally once a day for 30 days Active NASAL WASHES N/A as directed intranasally as needed for 30 Active Breo Ellipta 100-25 MCG/ACT USE 1 PUFF BY MOUTH ONCE A DAY for 90 Active ALBUTEROL (EQV-PROVENTIL HFA) 90 MCG/INH INHALE 2 PUFFS EVERY 4 TO 6 HOURS, NEEDED AND PER THE ASTHMA ACTION PLAN for 16 *Please review for potential replacement for e-prescription and drug interaction check* Active Rosuvastatin Calcium 40 MG 1 TAB(S) ORALLY ONCE A DAY *Please review and pick correct strength-formula tion from [employer] options. If intended option is not shown, discontinue and re-order from Quick Search* 08/02/2022 Active Levothyroxine Sodium 25 MCG 1 tab(s) orally once a day for 30 day(s) Active Aspirin 81 MG 1 tab(s) orally once a day Active AMLODIPINE 5 mg 1 tab(s) orally once a day Active MUCINEX 600 mg 1 tab(s) orally every 12 hours Active VITAMIN D3 5000 intl units 1 cap(s) orally once a day for 30 day(s) Active Trelegy Ellipta 200 MCG-62.5 MCG-25 MCG/INH USE 1 INHALATION ORALLY ONCE DAILY for 90 *Please review and pick correct strength-formula tion from Leftronic options. If intended option is not shown, discontinue and re-order from Quick Search* Not-Taking Cetirizine HCl 10 MG 1 tab(s) orally once a day for 30 days Active amLODIPine Besylate 5 MG 1 tab(s) orally once a day Active Vitamin D3 125 MCG (5000 UT) 1 cap(s) orally once a day for 30 day(s) Active SIT (TRADITIONAL) variable per schedule SC per schedule Active Montelukast Sodium 10 MG 1 tab(s) orally once a day for 90 days Not-Taking Trelegy Ellipta 100/62.5/25 MCG 1 INHALATION PO QDAY for 30 DAY(S) *Please review and pick correct strength-formula tion from Leftronic options. If intended option is not shown, discontinue and re-order from Quick Search* Not-Taking Auvi-Q 0.3 MG/0.3ML 0.3 mg intramuscularly once for 1 days Not-Taking BREO ELLIPTA 100 mcg-25 mcg/inh 1 puff(s) inhaled once a day for 90 days Active Montelukast Sodium 10 MG 1 tab(s) orally 30 mins prior to allergy shots for 30 day(s) Not-Taking Auvi-Q 0.3 MG/0.3ML 0.3 mg intramuscularly once Not-Taking Mucinex 600 MG 1 tab(s) orally every 12 hours Not-Taking Social History Tobacco Use: Social History Observation Description Date Details (start date - stop date) Never Smoker NA - NA Smoking Smart Form: Question Answer Notes Are you a: never smoker Tobacco Control (Standard) Question Answer Notes Tobacco use: Nonsmoker Vital Signs Blood pressure systolic 128 mm Hg 07/02/20 24 Blood pressure diastolic 68 mm Hg 024 Height 70.25 in 07/02/2024 Weight 157 lbs 07/02/2024 BMI 22.36 kg/m2 07/02/2024 Oximetry 100 % 07/02/2024 Encounters Encounter Location Date Provider Diagnosis [facility] [address] [place] [address] 07/02/2024 Clarisa Young Moderate persistent asthma, uncomplicated J45.40 ; Allergic rhinitis due to pollen J30.1 ; Allergic rhinitis due to animal (cat) (dog) hair and dander J30.81 ; Other allergic rhinitis J30.89 ; Other specified disorders of nose and nasal sinuses J34.89 and Vitamin D deficiency, unspecified E55.9 Assessments Encounter Date Diagnosis (ICD Code) Assessment Notes Treatment Notes Treatment Clinical Notes Section Notes 07/02/2024 Moderate persistent asthma, uncomplicated (ICD-10 - [...] MARKO per AAP Follow-up in 3-6 months 07/02/2024 Allergic rhinitis due to pollen (ICD-10 - J30.1) Don clearly suffers from atopic disease based upon history and our previous skin testing (oak tree, weeds, cockroach, dog, dust mites, molds). -He continue avoidance measures and medications as above. -He opted to hold shots in March and has been doing well - closely monitor and if symptoms regress will resume dosing 07/02/2024 Allergic rhinitis due to animal (cat) (dog) hair and dander (ICD-10 - J30.81) Continue allergen avoidance, meds and continue SCIT as an adjunctive treatment to current regimen 07/02/2024 Other allergic rhinitis (ICD-10 - J30.89) Continue allergen avoidance, meds and continue SCIT as an adjunctive treatment to current regimen 07/02/2024 Other specified disorders of nose and [...] mask. Contune to avoid nasal sprays 07/02/2024 Vitamin D deficiency, unspecified (ICD-10 - E55.9) Continue 5000 IU QD 07/02/2024 Other Plan Of Treatment Medication Medication Name Sig Start Date Stop Date Notes CETIRIZINE HYDROCHLORIDE 10 mg 1 tab(s) orally once a day for 30 days NASAL WASHES N/A as directed intranas ally as needed for 30 AMLODIPINE 5 mg 1 tab(s) orally once a day MUCINEX 600 mg 1 tab(s) orally ever y 12 hours VITAMIN D3 5000 intl units 1 cap(s) oral ly once a day for 30 day(s) BREO ELLIPTA 100 mcg-25 mcg/inh 1 puff(s) inhaled once a day for 90 days Treatment Notes Assessment Notes Moderate persistent asthma, uncomplicate d Jeff returns today doing well. -Spirometry today is [...] Up: 3-6 Months, Reaso n: Evaluation and Management,Spirometry/Flow Volume Loop Provider Name:Clarisa Frances , 07/15/2025 09:00:00 AM, [address] [facility] [address], [place], [address], Progress Notes * Otis ESCOTODOB: [birth year] (63 yo M)Acc No.[id number]:07/02/2024 Asthma F/U Patient: Sheyla MEDRANO Otis Back Provider: Titi Frances PA-C :1960 A ge:63 Y S ex:Male Date:07/02/2024 Address:[facility] [address], [address] [phone] Pcp:Debra Cortez Subjective: * Chief Complaints: * C ough f/u, stepped down from Trelegy 200 to [facility] last visit. ACT=25. No recent antibotics or steroids.ARC f/u, Stopped shots in 03/2024. Minimal drainage noted off treatment.Previously treated for H pylori in 2022. Food was getting stuck - doing better since treatment.No interval vision changes - previously with temporary lost vision in L eye - s/p US of carotid - normal CT with Neurology. [place] he has early signs of Parkisons * HPI: A sthma follow-up: Asthma Survey - Classification A sthma severity classification M oderate Persistent * Introduction: I had the pleasure of seeing Desiree childress Tigist, a 63-year-old male with allergic rhinitis, chronic cough with asthma component, ELKIN on CPAP and GERD who returns today for interval evaluation and management and SCIT. The last few months he has been doing well. F rom an allergy standpoint he has no compliants. He opted to hold shots in March. Minimal drainage noted but feels well. P reviously o n Trelegy 200, now back on [facility]. He was stepped up from [facility] after having having bronchitis on 07/2023 after returning from [place], did not seek care while in [place]. Received prednisone and Zpack x7 days Last prednisone use was prior to recent illness was 02/2018 for cough. He continued to have lingering asthma syptoms. Since that time he has been doing well. P felicita had PNA in 2019. Treated outpatient. He [...] son(s) . . brother has history of stroke. * Social History: M arital Status What is your marital status? m arried A lcohol Screening Do you ever drink alcoholic beverages? Y es Number of drinks per occasion: 1 Frequency? E very 6 months S moking Additional Findings: Tobacco Non-User C urrent non-smoker Are you a : n ever smoker S moking Smart Form Are you a: n ever smoker R ecreational drug use [...] Age of carpet? 4 Do you have ivcl-uv-jehd carpeting? Y es What is the age [...] obacco Control (Standard) Tobacco use: N onsmoker * Medications: T akingSIT (TRADITIONAL) variable see record per schedule SC per schedule Vitamin D3 125 MCG (5000 UT) Capsule 1 cap(s) orally once a day amLODIPine Besylate 5 MG Tablet 1 tab(s) orally once a day Cetirizine HCl 10 MG Tablet 1 tab(s) orally once a day NASAL WASHES N/A 1 QUART OF STERILIZED TAP WATER OR DISTILLED WATER, 1 TSP NACL, 1 PINCH OF BAKING SODA DIRECTED INTRANASALLY NEEDED , Notes to Pharmacist: *Please review for potential replacement for e-prescription and drug interaction check*Aspirin 81 MG Tablet Delayed Release 1 tab(s) orally once a day Levothyroxine Sodium 25 MCG Tablet 1 tab(s) orally once a day Rosuvastatin Calcium 40 MG CAPSULE 1 TAB(S) ORALLY ONCE A DAY , Notes to Pharmacist: *Please review and pick correct strength-formulation from [employer] options. If intended option is not shown, discontinue and re-order from Quick Search*ALBUTEROL (EQV-PROVENTIL HFA) 90 MCG/INH AEROSOL INHALE 2 PUFFS EVERY 4 TO 6 HOURS, NEEDED AND PER THE ASTHMA ACTION PLAN , Notes to Pharmacist: *Please review for potential replacement for e-prescription and drug interaction check*Breo Ellipta 100-25 MCG/ACT Aerosol Powder Breath Activated USE 1 PUFF BY MOUTH ONCE A DAY Taking SIT (TRADITIONAL) variable see record per schedule SC per schedule Taking Vitamin D3 125 MCG (5000 UT) Capsule 1 cap(s) orally once a day Taking amLODIPine Besylate 5 MG Tablet 1 tab(s) orally once a day Taking Cetirizine HCl 10 MG Tablet 1 tab(s) orally once a day Taking NASAL WASHES N/A 1 QUART OF STERILIZED TAP WATER OR DISTILLED WATER, 1 TSP NACL, 1 PINCH OF BAKING SODA DIRECTED INTRANASALLY NEEDED , Notes to Pharmacist: *Please review for potential replacement for e-prescription and drug interaction check*Taking Aspirin 81 MG Tablet Delayed Release 1 tab(s) orally once a day Taking Levothyroxine Sodium 25 MCG Tablet 1 tab(s) orally once a day Taking Rosuvastatin Calcium 40 MG CAPSULE 1 TAB(S) ORALLY ONCE A DAY , Notes to Pharmacist: *Please review and pick correct strength-formulation from [employer] options. If intended option is not shown, discontinue and re-order from Quick Search*Taking ALBUTEROL (EQV-PROVENTIL HFA) 90 MCG/INH AEROSOL INHALE 2 PUFFS EVERY 4 TO 6 HOURS, NEEDED AND PER THE ASTHMA ACTION PLAN , Notes to Pharmacist: *Please review for potential replacement for e-prescription and drug interaction check*Taking Breo Ellipta 100-25 MCG/ACT Aerosol Powder Breath Activated USE 1 PUFF BY MOUTH ONCE A DAY Not-Taking/PRNMucinex 600 MG Tablet Extended Release 12 Hour [...] *Please review and pick correct strength-formulation from [employer] options. If intended option is not shown, discontinue and re-order from Quick Search*Montelukast Sodium 10 MG Tablet 1 tab(s) orally once a day Trelegy Ellipta 200 MCG-62.5 MCG-25 MCG/INH POWDER USE 1 INHALATION ORALLY ONCE DAILY , Notes to Pharmacist: *Please review and pick correct strength-formulation from [employer] options. If intended option is not shown, discontinue and re-order from Quick Search*Medication List reviewed and reconciled with the patientNot-Taking/PRN Mucinex 600 MG Tablet Extended Release 12 [...] *Please review and pick correct strength-formulation from [employer] options. If intended option is not shown, discontinue and re-order from Quick Search*Not-Taking/PRN Montelukast Sodium 10 MG Tablet 1 tab(s) orally once a day Not-Taking/PRN Trelegy Ellipta 200 MCG-62.5 MCG-25 MCG/INH POWDER USE 1 INHALATION ORALLY ONCE DAILY , Notes to Pharmacist: *Please review and pick correct strength-formulation from [employer] options. If intended option is not shown, discontinue and re-order from Quick Search*Medication List reviewed and reconciled with the patient * Allergies: N .K.D.A.no[Allergies Verified] Objective: * Vitals: B P:128/68mm Hg, HR:69/min, Pulse Oximetry:100%, ACT:23, Ht: 70.25 in, Wt: 157 lbs, BMI:22.36Index. * Examination: G eneral examination: General appearance: [...] * Treatment: Value Reference Range S piroPreBronchodilator_FVC 4.1 * S piroPreBronchodilator_FEF25_75 3.83 * S piroPreBronchodilator_FEV1 3.36 * S piroPrecentPredictionPre_FEF25_75 116.1 * S piroPrecentPredictionPre_FEV1 93.1 * S piroPrecentPredictionPre_FEV1_OVER_FVC 105.8 * S piroPrecentPredictionPre_FVC 87.8 * S piroPredicted_FEF25_75 3.3 * S piroPreBronchodilator_FEV1_OVER_FVC 81.87 * S piroPreBronchodilator_PEF 7.36 * S piroPredicted_FVC 4.67 * S piroPredicted_FEV1 3.61 * S piroPredicted_FEV1_OVER_FVC 77.41 * S piroPredicted_PEF 8.5 * Normal spirometry by FEV1, F VC, and FEV%. FVL is essentially normal Notes: Don returns today doing well. -Spirometry today [...] hours.?? * Procedure Codes: 9 6160 PT-FOCUSED HLTH RISK [id number] DOC MEDS VERIFIED W/PT OR [id number] RESPIRATORY FLOW VOLUME LOOP * Preventive Medicine: Counseling: D iet a s tolerated. E xercise C ontinue activity as usual, Consider MARKO use PRN, prior to exercise as per the asthma action plan. M edication instruction: W atch for side effects of prescribed medications, Use prescribed inhaler(s) with spacer. If taking a inhaled corticorsteroid rinse out mouth after use and brush teeth. Oral hygiene reviewed at length. , [place] teeth or rinse out mouth after the [...] CARE PROVIDER: Johnny mahajan to general practitioner * Follow Up: 3 -6 Months (Reason: Evaluation and Management,Spirometry/Flow Volume Loop) * Billing Information: * Visit Code: 41544 Office Visit, Est Pt., Level 4. Modifiers: 25 * Procedure Codes: 82569 PT-FOCUSED HLTH RISK ASSMT. G8427 DOC MEDS VERIFIED W/PT OR RE. A4617 Mouthpiece. 25146 RESPIRATORY FLOW VOLUME LOOP. * Sign off status: Completed true * Provider: Titi Frances PA-C Date: 0 07/02/2024 Generated for Melida cobb/Henna/Mariah on: 0 02/11/2025 03:07 PM CDT History and Physical Notes * HPI (History of Present Illness) Category Sub-Category Detail Notes Category Not es *Introduction I had the pleasure of seeing Otis Escoto (Don), a 63-year-old male with allergic rhinitis, chronic cough with asthma component, ELKIN on CPAP and GERD who returns today for interval evaluation and management and SCIT. The last few months he has been doing well. From an allergy standpoint he has no compliants. He opted to hold shots in March. Minimal drainage noted but feels well. Previously on [employer] [facility], now back on [facility]. He was stepped up from [facility] after having having bronchitis on 07/2023 after [...]
--- OUTSIDE RECORDS SUMMARY | 2025-02-11 15:07 | XMS_ITS | Encounter Summary ---
Author Organization [facility] Address [address] [place] [address] Care Team Providers Care Central Office Operator Name Role Phone Ward Sher MD Primary Care Provider [phone] Encounter Details Date Type Department Care Team (Late st Contact Info) Description 03/25/2024 Lab Requisition [facility] - DermPath Lab [address] [place] [id number] Millie Hair MD [address] [facility] [address] [place] [address] Social History Tobacco Use Types Packs/Day Years Used Date Smoking Tobacco: Never Smokeless Tobacco: Never Sex and Gender Information Value Date Recorded Sex Assigned at Not on file Legal Sex Male 6:47 AM [employer] Gender Identity Not on file Sexual Orientation Not on file documented as of this encounter Plan of Treatment Not on file documented as of this encounter Procedures Procedure Name Priority Date/Time Associated Diagnosis Comments DERMATOPATHOLOGY Routine 03/25/2024 9:08 AM CDT documented in this encounter Results * DERMATOPATHOLOGY (03/25/2024 9:08 AM CDT) Case Report Dermatopathology Report Case: [id number] Authorizing Provider: Millie Hair MD Collected: 03/25/2024 09:08 AM Ordering Location: [facility] - Received: 03/26/2024 06:22 AM DermPath Lab Pathologist: Rosita Adams MD Specimens: A) - Skin, glabella B) - Skin, right thigh 3:56 PM [facility]AT[facility] Final Diagnosis Specimen A. 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 SKIN, right thigh: LENTIGINOUS MELANOCYTIC NEVUS, JUNCTIONAL TYPE, IRRITATED AND INFLAMED (D22.71) 3:56 PM [facility] DERMATOPATHOLOG[facility]ORATORY Clinical History A: [facility] B: Nevus r/o MM 3:56 PM [facility] Gross Description Specimen A: Received is one formalin filled container labeled with the patient's name and designated glabella. The specimen consists of a shave biopsy measuring 4x3x1 mm. Jar 0. Specimen B: Received is one formalin filled container labeled with the patient's name and designated right thigh. The specimen consists of a shave biopsy measuring 6x6x1 mm. Jar 0. 3:56 PM [facility] DERMATOPATHOLOGY [facility]ORATORY Microscopic Description Specimen A. SKIN, [...] characteristic determined by the Dermatopathology Laboratory at [facility], directed by Dr. Beatriz Adams. These tests need not be, and therefore are not, approved by the [place] Food and Drug Administration. The tests are used for clinical purposes. Billing Codes Specimen Charges Stain Charges 31901 87485 1 1 4 3:56 PM CDT DERMATOPATHOLOGY LABORATORY Embedded Images 4 3:56 PM CDT DERMATOPATHOLOGY LABORATORY Pathology/Cytology TISSUE SPECIMEN FROM SKIN / Unknown 03/25/2024 9:08 AM CDT 03/26/2024 6:22 AM CDT Miscellaneous samples (specimen) TISSUE SPECIMEN FROM SKIN / Unknown 03/25/2024 9:08 AM CDT 03/26/2024 6:22 AM CDT us Millie Hair MD LAB - PATHOLOGY/CYTOLOGY ORD ERABLES Final Result DERMATOPATHOLOGY LABORATORY [facility] - Department of Dermatology Specialized Medicine [address] [place] [address], [address] [phone] documented in this encounter Visit Diagnoses Not on filedocumented in this encounter Care Teams Central Office Operator Relationship Specialty Start Date End Date Ward Sher MD [address] [place] [address] PCP - General Family Medicine 11/29/17 documented as of this encounter
[2025-02-11 15:09] VITALS: PULSE 92; RESP 18
[2025-02-11 15:24] VITALS: PULSE 100; RESP 18
[2025-02-11 15:44] VITALS: BP 139/68; PULSE 108; RESP 18; O2SAT 99
[2025-02-11 16:02] LABS: Influenza A QL RT-PCR Negative (Negative); Influenza B QL RT-PCR Negative (Negative); RSV RNA, RT-PCR Negative (Negative); SARS-CoV-2 RNA PCR Negative (Negative)
[2025-02-11 17:01] VITALS: BP 131/75; PULSE 106; RESP 20; TEMP 37; O2SAT 99
== END 2025-02-11 17:02 | disposition home or self-care (01) ==
PROVIDERS: Emergency Provider Emergency Medicine; PCP Family Medicine
DX: J18.9 Pneumonia, unspecified organism (principal); Z20.822 Contact with and (suspected) exposure to COVID-19
CPT/HCPCS: 71046; 87637; 94640; 99283